=== PATIENT | female | born 1980 | race Two or more races ===

== ENCOUNTER 2016-11-02 14:30 | Inpatient (IN) | payer BC, OTHER ==
[~2016-11-02] VITALS: Ht 170.2 cm; Wt 109.3 kg
[2016-11-02 15:00] LABS: Basophils # (auto) 0 uL; Basophils % (auto) 0.3 % (0.0-2.0); CONDITION Y; Eosinophils # (auto) 0.2 uL; Eosinophils % (auto) 1.6 % (0.0-7.0); Hematocrit 40.8 % (36.0-46.0); Hemoglobin 14.2 g/dL (12.2-16.2); Lymphocytes # (auto) 2.8 uL; Lymphocytes % (auto) 26.1 % (10.0-50.0); Mean Corpuscular Hemoglobin 32.8 pg (28.0-32.0); Mean Corpuscular Hgb Conc. 34.8 g/dL (32.0-36.0); Mean Corpuscular Volume 94.2 fL (80.0-100.0); Mean Platelet Volume 9.2 fL (7.4-10.4); Monocytes # (auto) 0.7 uL; Monocytes % (auto) 6.3 % (0.0-12.0); Neutrophils # (auto) 7.1 uL; Neutrophils % (auto) 65.7 % (37.0-80.0); Platelet Count (auto) 347 10^3/uL (140-450); Red Cell Distribution Width 12.9 % (11.6-16.0); White Blood Cell 10.8 10^3/uL (4.4-10.8)
[2016-11-02 15:35] LABS: Albumin 3.5 g/dL (3.4-5.0); Bilirubin, Total 0.4 mg/dL (0.2-1.0); Calcium 9.3 mg/dL (8.5-10.1); Potassium 4.4 mmol/L (3.5-5.1); Total Protein 8.1 g/dL (6.4-8.2)
[2016-11-02] MEDS ORDERED: SODIUM CHLORIDE 0.9% 1,000 ML IV ONE (16:19)
[2016-11-02] MEDS ORDERED: InsuLIN REG 1unit/0.01ml Soln (100units/ml) IV ONE (16:30)
[2016-11-02 17:02] LABS: Urine Bilirubin Negative (Negative); Urine Color Yellow (Yellow); Urine Nitrite Negative (Negative); Urine RBC 4 /hpf (0 - 4); Urine Squamous Epithelial Cell FEW /hpf (<5); Urine Urobilinogen Normal (Negative); Urine pH 6.5 (5.0-8.0)
[2016-11-02 17:10] LABS: Urine Blood 2+ /uL (Negative); Urine Glucose 4+ mg/dL (Normal); Urine Ketone 1+ (Negative)
[2016-11-02] MEDS ORDERED: MORPHINE SULF INJ 2 MG/ML SYRINGE 1ML IV PRN (17:30)
[2016-11-02] MEDS ORDERED: HYDROcodone-ACET 5/325MG TAB PO PRN (17:30)
[2016-11-02] MEDS ORDERED: TEMAZEPAM 15 MG CAP PO PRN (17:30)
[2016-11-02] MEDS ORDERED: ONDANSETRON HCL 4 MG/2 ML VIAL IV PRN (17:30)
[2016-11-02] MEDS ORDERED: ACETAMINOPHEN 500 MG TAB PO PRN (17:30)
[2016-11-02] MEDS ORDERED: LORazepam 0.5 MG TAB PO PRN (17:30)
[2016-11-02] MEDS ORDERED: DEXTROSE (50%) 50ML SYRG IV PRN (17:30)
[2016-11-02] MEDS ORDERED: cefTRIAXone 1GM/50ML D5W 50 ML IV ONE ×2 (17:30)
[2016-11-02] MEDS: GENTAMICIN OPTH sol 0.3% 5ml EACHEYE SCH ×2 (18:13→21:52)
[2016-11-02] MEDS: SODIUM CHLORIDE 0.9% 1,000 ML IV SCH (18:21)
[2016-11-02] MEDS: ACCU-CHEK COMFORT CURVE STRIP VI SCH ×2 (20:28→23:58)
[2016-11-02] MEDS: InsuLIN REG 1unit/0.01ml Soln (100units/ml) SC SCH ×2 (20:28→23:58)
[2016-11-02 20:34] VITALS: BP 131/86
[2016-11-02 20:40] VITALS: BP 131/86
[2016-11-03] MEDS: SODIUM CHLORIDE 0.9% 1,000 ML IV SCH ×2 (01:20→09:47)
[2016-11-03] MEDS: GENTAMICIN OPTH sol 0.3% 5ml EACHEYE SCH ×4 (01:49→14:33)
[2016-11-03] MEDS ORDERED: METH750T3 PO (03:04)
[2016-11-03] MEDS ORDERED: GABA-339 PO (03:04)
[2016-11-03] MEDS ORDERED: HYDR-3995 PO (03:04)
[2016-11-03] MEDS ORDERED: DICL-176 PO (03:04)
[2016-11-03] MEDS: ACCU-CHEK COMFORT CURVE STRIP VI SCH ×3 (04:26→11:54)
[2016-11-03] MEDS: InsuLIN REG 1unit/0.01ml Soln (100units/ml) SC SCH ×3 (04:26→12:03)
[2016-11-03 05:00] VITALS: BP 124/89
[2016-11-03 09:00] VITALS: BP 104/50
[2016-11-03] MEDS ORDERED: cefTRIAXone 1GM/50ML D5W 50 ML IV SCH (09:00)
[2016-11-03] MEDS ORDERED: metFORMIN HYDROCHLORIDE 500 MG TAB PO SCH (10:00)
[2016-11-03 13:00] VITALS: BP 110/63
== END 2016-11-03 16:30 | disposition home or self-care (01) | DRG 638 ==
LOC: ER 14:39 → OVERFLOW 14:40 → EAST 20:36
PROVIDERS: ADMIT Internal Medicine; ATTEND Internal Medicine
DX: E11.65 Type 2 diabetes mellitus with hyperglycemia (principal); N39.0 Urinary tract infection, site not specified; H66.90 Otitis media, unspecified, unspecified ear; E66.9 Obesity, unspecified; M54.5 Low back pain; G89.29 Other chronic pain; H10.9 Unspecified conjunctivitis; I10 Essential (primary) hypertension; Z68.37 Body mass index [BMI] 37.0-37.9, adult
CPT/HCPCS: 36415; 80053; 81001; 81025; 82962; 83036; 85025; 87086; 94761; 96361; 96365; J0696; J1815

== ENCOUNTER 2019-10-20 18:25 | Emergency (ER) | payer BC, OTHER ==
[~2019-10-20] VITALS: Ht 170.2 cm; Wt 104.3 kg
[~2019-10-20 18:25] MED LIST: DICL-176 PO; GABA-339 PO; HYDR-3995 PO; METH750T3 PO
[2019-10-20 18:35] VITALS: BP 175/90
[2019-10-20] MEDS ORDERED: ACETAMINOPHEN 500 MG TAB PO ONE (20:00)
[2019-10-20 20:32] LABS: Basophils # (auto) 0 10 ^3/uL (0-0.2); Basophils % (auto) 0.4 % (0.0-2.0); Eosinophils # (auto) 0 10 ^3/uL (0-0.8); Eosinophils % (auto) 0.7 % (0.0-7.0); Hematocrit 42.8 % (36.0-46.0); Hemoglobin 14.8 g/dL (12.2-16.2); Lymphocytes # (auto) 1.2 10 ^3/uL (0.4-5.4); Lymphocytes % (auto) 18.5 % (10.0-50.0); Mean Corpuscular Hemoglobin 32.8 pg (28.0-32.0); Mean Corpuscular Hgb Conc. 34.6 g/dL (32.0-36.0); Mean Corpuscular Volume 94.6 fL (80.0-100.0); Monocytes # (auto) 0.3 10 ^3/uL (0-1.3); Monocytes % (auto) 5.2 % (0.0-12.0); Neutrophils # (auto) 4.9 10 ^3/uL (1.6-8.6); Neutrophils % (auto) 75.2 % (37.0-80.0); Nucleated Red Blood Cells % 0.1 %; Platelet Count (auto) 194 10^3/uL (140-450); Red Blood Cells 4.52 10^6/uL (4.0-5.20); White Blood Cell 6.5 10^3/uL (4.4-10.8)
[2019-10-20 20:49] LABS: Albumin 3.5 g/dL (3.4-5.0); Potassium 3.4 mmol/L (3.5-5.1)
[2019-10-20 20:53] LABS: BUN/Creatinine Ratio 16.5; Bilirubin, Total 0.4 mg/dL (0.2-1.0); Total Protein 8.3 g/dL (6.4-8.2)
== END 2019-10-21 00:11 | disposition home or self-care (01) ==
LOC: ER 18:25
DX: R50.9 Fever, unspecified (principal); R05 Cough; R51 Headache; R06.02 Shortness of breath; Z20.828 Contact with and (suspected) exposure to other viral communicable diseases; E11.9 Type 2 diabetes mellitus without complications; I10 Essential (primary) hypertension
CPT/HCPCS: 36415; 71045; 80053; 82728; 85025; 87070; 87635; 87804; 87880

== ENCOUNTER 2019-10-26 10:09 | Inpatient (IN) | payer BC ==
[~2019-10-26] VITALS: Ht 170.2 cm; Wt 100.0 kg
[2019-10-26] MEDS ORDERED: ASCORBIC ACID 500 MG TAB PO ONE (10:15)
[2019-10-26] MEDS ORDERED: DOXYCYCLINE 100 MG TAB/CAP PO ONE (10:15)
[2019-10-26] MEDS ORDERED: CHOLECALCIFEROL (VITD3) 1,000UNIT=25mCg TAB PO ONE (10:15)
[2019-10-26] MEDS ORDERED: cefTRIAXone 1GM/50ML D5W 50 ML IV ONE (10:15)
[2019-10-26] MEDS ORDERED: ACETAMINOPHEN 500 MG TAB PO ONE (10:15)
[2019-10-26] MEDS ORDERED: HYDROcodone-ACET 10/325MG TAB PO ONE (10:45)
[2019-10-26] MEDS ORDERED: DexAMETHasone SOD PHOS 10MG/1ML VIAL INJ IV ONE (10:45)
[2019-10-26 10:49] LABS: Basophils # (auto) 0 10 ^3/uL (0-0.2); Basophils % (auto) 0.3 % (0.0-2.0); Eosinophils # (auto) 0.1 10 ^3/uL (0-0.8); Hematocrit 43.9 % (36.0-46.0); Hemoglobin 15.2 g/dL (12.2-16.2); Lymphocytes # (auto) 1.6 10 ^3/uL (0.4-5.4); Lymphocytes % (auto) 18.1 % (10.0-50.0); Mean Corpuscular Hgb Conc. 34.6 g/dL (32.0-36.0); Mean Corpuscular Volume 92.5 fL (80.0-100.0); Monocytes # (auto) 0.5 10 ^3/uL (0-1.3); Monocytes % (auto) 5.6 % (0.0-12.0); Neutrophils # (auto) 6.6 10 ^3/uL (1.6-8.6); Nucleated Red Blood Cells % 0.1 %; Platelet Count (auto) 446 10^3/uL (140-450); Red Blood Cells 4.75 10^6/uL (4.0-5.20); Red Cell Distribution Width 12.1 % (11.8-14.3); White Blood Cell 8.8 10^3/uL (4.4-10.8)
[2019-10-26 11:08] LABS: Anion Gap 10 (5-15); Blood Urea Nitrogen 14 mg/dL (7-18); Calcium 9.2 mg/dL (8.5-10.1); Carbon Dioxide 22 mmol/L (21-32); Chloride 104 mmol/L (98-107); Glucose 282 mg/dL (74-106); Magnesium 2.1 mg/dL (1.6-2.6); Potassium 3.6 mmol/L (3.5-5.1); Sodium 136 mmol/L (136-145)
[2019-10-26 11:11] LABS: Lactic Acid w/Reflex 2.3 mmol/L (0.4-2.0)
[2019-10-26 11:16] LABS: Alanine Aminotransferase 32 U/L (13-56); Alkaline Phosphatase 157 U/L (45-117); Aspartate Aminotransferase 50 U/L (15-37); Bilirubin, Total 0.6 mg/dL (0.2-1.0); GFR African American 120 mL/min; GFR Non-African American 99 mL/min; Lactate Dehydrogenase 443 U/L (84-246); Total Protein 8.9 g/dL (6.4-8.2)
[2019-10-26 11:48] LABS: Albumin 2.9 g/dL (3.4-5.0)
[2019-10-26] MEDS ORDERED: SODIUM CHLORIDE 0.9% 1,000 ML IV SCH (12:37)
[2019-10-26] MEDS ORDERED: MORPHINE SULF INJ 2 MG/ML SYRINGE 1ML IV PRN (12:45)
[2019-10-26] MEDS ORDERED: ACETAMINOPHEN 500 MG TAB PO PRN (12:45)
[2019-10-26] MEDS ORDERED: ALUM & MAG HYDROX-SIMETH LIQ(MAALOX) 30 ML PO PRN (12:45)
[2019-10-26] MEDS ORDERED: NITROGLYCERIN 0.4 MG SL TAB SL PRN (12:45)
[2019-10-26] MEDS ORDERED: DOCUSATE SOD 100 MG CAP PO PRN (12:45)
[2019-10-26] MEDS ORDERED: FUROSEMIDE 20 MG/2 ML VIAL IV ONE (13:00)
[2019-10-26] MEDS ORDERED: DexAMETHasone 4 MG TAB PO ONE (13:00)
[2019-10-26 13:29] LABS: Cholesterol 133 mg/dL (< 200)
[2019-10-26 13:31] LABS: HDL Cholesterol 29 mg/dL (40-59); Triglycerides 448 mg/dL (< 150)
[2019-10-26] MEDS ORDERED: hydrALAZINE HCL 20 MG/ML VL IV PRN (13:45)
[2019-10-26] MEDS ORDERED: DEXTROSE (50%) 50ML SYRG IV PRN ×2 (13:45→18:30)
[2019-10-26] MEDS: ALBUTEROL SULF HFA 90MCG INH 200DOSE IN SCH ×2 (14:00→22:50)
[2019-10-26] MEDS ORDERED: PROP20TA73 PO (16:45)
[2019-10-26] MEDS ORDERED: METF-370 PO (16:45)
[2019-10-26] MEDS ORDERED: TIZA4CAP PO (16:46)
[2019-10-26] MEDS ORDERED: GLIP5TAB12 PO (16:47)
[2019-10-26] MEDS ORDERED: NORGTAB59 PO (16:49)
[2019-10-26] MEDS ORDERED: ACCU-CHEK COMFORT CURVE STRIP VI SCH (17:00)
[2019-10-26] MEDS ORDERED: InsuLIN REG 1unit/0.01ml Soln (100units/ml) SC SCH (17:00)
--- NOTE | 2019-10-26 17:00 | NUR ---
Telemetry admit from ER SARAY BOYLE admitted to Telemetry unit after SBAR received. Patient oriented to AMY COWART RN primary RN, unit, room, bed, and unit policies regarding patient care and visiting hours. Patient now on continuous telemetry monitoring, tele box # 11 and telemetry reading on arrival to unit is SR 76. Patient placed on bedside oxygen, weighed by bedscale and encouraged to call if they need something. All questions and concerns addressed, patient verbalized understanding. Note:
[2019-10-26 17:35] VITALS: BP 119/72
[2019-10-26] MEDS: FUROSEMIDE 20 MG/2 ML VIAL IV SCH (18:18)
[2019-10-26] MEDS ORDERED: INSULIN LANTUS (GLARGINE) 1 /0.01ml (100units/ml) SC ONE (18:30)
--- NOTE | 2019-10-26 18:30 | NUR ---
RECEIVED CALL BACK FROM DOCTOR FLOR INFORMED MD PATIENTS BLOOD SUGAR WAS [phone] AND [phone]. ALSO INFORMED MD THAT PATIENT STATED SHE HAS A YEAST INFECTION. NEW ORDERS RECEIVED SEE EMR FOR ORDERS.
[2019-10-26] MEDS ORDERED: FLUCONAZOLE 100 MG TAB PO ONE (20:00)
[2019-10-26] MEDS: DexAMETHasone 4 MG TAB PO SCH (20:48)
[2019-10-26] MEDS: ONDANSETRON HCL 4 MG/2 ML VIAL IV PRN (20:49)
[2019-10-26] MEDS: ACCU-CHEK COMFORT CURVE STRIP VI SCH (20:49)
[2019-10-26] MEDS: DOXYCYCLINE 100 MG TAB/CAP PO SCH (20:49)
[2019-10-26 22:00] VITALS: BP 151/95
[2019-10-27] MEDS ORDERED: DOXE6TAB4 PO (00:28)
[2019-10-27] MEDS: LORazepam 0.5 MG TAB PO PRN ×2 (00:48→23:44)
[2019-10-27] MEDS: InsuLIN REG 1unit/0.01ml Soln (100units/ml) SC SCH ×5 (00:50→23:52)
[2019-10-27 03:55] VITALS: BP 151/95
[2019-10-27] MEDS: MORPHINE SULF INJ 2 MG/ML SYRINGE 1ML IV PRN ×4 (04:58→21:22)
[2019-10-27 05:00] VITALS: BP 120/75
[2019-10-27] MEDS: ACCU-CHEK COMFORT CURVE STRIP VI SCH ×4 (05:38→23:51)
[2019-10-27] MEDS: FUROSEMIDE 20 MG/2 ML VIAL IV SCH (06:00)
[2019-10-27] MEDS: ALBUTEROL SULF HFA 90MCG INH 200DOSE IN SCH ×3 (06:01→20:39)
[2019-10-27 06:34] LABS: Basophils # (auto) 0 10 ^3/uL (0-0.2); Eosinophils # (auto) 0 10 ^3/uL (0-0.8); White Blood Cell 6.6 10^3/uL (4.4-10.8)
[2019-10-27 06:37] LABS: Basophils % (auto) 0.2 % (0.0-2.0); Hemoglobin 13.9 g/dL (12.2-16.2); Lymphocytes # (auto) 1.2 10 ^3/uL (0.4-5.4); Lymphocytes % (auto) 17.4 % (10.0-50.0); Mean Corpuscular Hemoglobin 32.4 pg (28.0-32.0); Mean Corpuscular Hgb Conc. 34.7 g/dL (32.0-36.0); Mean Corpuscular Volume 93.4 fL (80.0-100.0); Monocytes # (auto) 0.4 10 ^3/uL (0-1.3); Monocytes % (auto) 6.3 % (0.0-12.0); Neutrophils % (auto) 76.1 % (37.0-80.0); Nucleated Red Blood Cells % 0.1 %; Platelet Count (auto) 450 10^3/uL (140-450); Red Blood Cells 4.28 10^6/uL (4.0-5.20); Red Cell Distribution Width 11.8 % (11.8-14.3)
[2019-10-27 06:58] LABS: Albumin 2.8 g/dL (3.4-5.0); Anion Gap 9 (5-15); Blood Urea Nitrogen 16 mg/dL (7-18); Calcium 9.2 mg/dL (8.5-10.1); Carbon Dioxide 21 mmol/L (21-32); Chloride 104 mmol/L (98-107); Glucose 305 mg/dL (74-106); INR 0.96 (0.9-1.15); Magnesium 1.9 mg/dL (1.6-2.6); Partial Thromboplastin Time 27.6 sec (23.64-32.05); Potassium 3.6 mmol/L (3.5-5.1); Sodium 134 mmol/L (136-145)
[2019-10-27 07:15] LABS: Alanine Aminotransferase 27 U/L (13-56); Alkaline Phosphatase 140 U/L (45-117); Aspartate Aminotransferase 30 U/L (15-37); BUN/Creatinine Ratio 28.6; Bilirubin, Total 0.4 mg/dL (0.2-1.0); GFR African American 155 mL/min; GFR Non-African American 128 mL/min; Lactate Dehydrogenase 333 U/L (84-246); Phosphorus 2.6 mg/dL (2.5-4.90); Total Protein 8.2 g/dL (6.4-8.2); Uric Acid 3.8 mg/dL (2.6-6.0)
--- NOTE | 2019-10-27 08:00 | NUR ---
OPENING NOTE ASSUMED CARE OF PT. NO S/S OF DISTRESS NOTED AT THIS TIME. PT COMPLAINS OF LOWER BACK, NECK AND HEAD PAIN. PT RECEIVING OXYGEN VIA OXYMIZER @9L. POC DISCUSSED WITH PT. RHONCHI AND WHEEZING HEARD BILATERALLY IN THE POSTERIOR BASES. PT ADVISED TO USE THE IS TO PROMOTE LUNG EXPANSION. SAFETY MEASURES IN PLACE, CALL LIGHT WITHIN REACH, PATIENT ADVISED TO CALL FOR ASSISTANCE. ALL NEEDS MET AT THIS TIME, WILL CONTINUE TO MONITOR.
[2019-10-27] MEDS: DOXYCYCLINE 100 MG TAB/CAP PO SCH ×2 (08:59→20:39)
[2019-10-27] MEDS: ASCORBIC ACID 1,000 MG TAB PO SCH (08:59)
[2019-10-27] MEDS: ZINC SULFATE 220mg CAP or TAB PO SCH (08:59)
[2019-10-27] MEDS: CHOLECALCIFEROL (VITD3) 1,000UNIT=25mCg TAB PO SCH (08:59)
[2019-10-27 09:00] VITALS: BP 142/92
[2019-10-27] MEDS ORDERED: ENOXAPARIN SOD 40 MG/0.4 ML SYRINGE SC SCH (10:00)
[2019-10-27] MEDS ORDERED: ENOXAPARIN SOD 60 MG/0.6 ML SYRINGE SC ONE (10:30)
[2019-10-27] MEDS: DexAMETHasone 4 MG TAB PO SCH ×2 (10:34→20:39)
[2019-10-27] MEDS: HYDROcodone-ACET 5/325MG TAB PO PRN (11:07)
[2019-10-27 13:00] VITALS: BP 109/70
[2019-10-27] MEDS ORDERED: DEXTROSE (50%) 50ML SYRG IV PRN (13:30)
[2019-10-27] MEDS ORDERED: POTASSIUM EFFERVESENT TAB 25 MEQ PO ONE (13:45)
[2019-10-27 17:00] VITALS: BP 146/90
--- NOTE | 2019-10-27 19:30 | NUR ---
Opening Shift Note Assumed care of patient, awake and alert. No S/S of distress/SOB or pain. Insructed on POC and to callfor assist PRN, will continue to monitor for changes Q1hr and PRN. Fall and safety precautions in place. Call light within reach.
[2019-10-27] MEDS: cefTRIAXone 1GM/50ML D5W 50 ML IV SCH (20:38)
[2019-10-27] MEDS: ENOXAPARIN SOD 100 MG/1 ML SYRINGE SC SCH (20:39)
[2019-10-27] MEDS: INSULIN LANTUS (GLARGINE) 1 /0.01ml (100units/ml) SC SCH (20:58)
[2019-10-27] MEDS: ONDANSETRON HCL 4 MG/2 ML VIAL IV PRN (21:22)
--- NOTE | 2019-10-27 21:56 | NUR ---
MDI ADMINISTERED BY JUVE TREVINO.
[2019-10-27 22:45] VITALS: BP 131/89
[2019-10-28] MEDS: ONDANSETRON HCL 4 MG/2 ML VIAL IV PRN (04:08)
[2019-10-28] MEDS: MORPHINE SULF INJ 2 MG/ML SYRINGE 1ML IV PRN ×3 (04:09→16:08)
[2019-10-28 04:15] LABS: Urine Bacteria FEW /hpf (None Seen); Urine Blood Negative /uL (Negative); Urine Specific Gravity 1.037 (1.001-1.035); Urine WBC 1 /hpf (0 - 5)
[2019-10-28 04:31] LABS: Alcohol, Urine < 3.0 mg/dL (0-10); Amphetamine Screen, Urine NEGATIVE (NEGATIVE); Barbiturate Scree,Urine NEGATIVE (NEGATIVE); Benzodiazephine Screen, Urine NEGATIVE (NEGATIVE); Cannabinoid Screen, Urine NEGATIVE (NEGATIVE); Cocaine Screen, Urine NEGATIVE (NEGATIVE); Opiate Scree,Urine POSITIVE (NEGATIVE); Phencyclidine Screen, Urine NEGATIVE (NEGATIVE)
[2019-10-28 05:27] VITALS: BP 125/75
[2019-10-28] MEDS: ALBUTEROL SULF HFA 90MCG INH 200DOSE IN SCH ×3 (05:37→22:17)
--- NOTE | 2019-10-28 05:37 | NUR ---
Respiratory note: PT IS RESTING COMFORTABLY. NO RESPIRATORY DISTRESS NOTED. SPO2 92% ON 8L OXYMIZER 64% FIO2, HR 91, RR 18, BS DIMINISHED BILATERALLY. 1 PUFF ALBUTEROL (90MCG) GIVEN VIA MDI WITH CHAMBER BY RN. NO ADVERSE EFFECTS NOTED. NO FURTHER RESPIRATORY INTERVENTIONS INDICATED. CHARTING COMPLETE FROM OUTSIDE OF PT ROOM DUE TO COVID-19 PRECAUTIONS/PROTOCOL.
[2019-10-28] MEDS: ACCU-CHEK COMFORT CURVE STRIP VI SCH ×3 (05:38→18:10)
[2019-10-28] MEDS: InsuLIN REG 1unit/0.01ml Soln (100units/ml) SC SCH ×3 (05:38→18:11)
[2019-10-28] MEDS: LORazepam 0.5 MG TAB PO PRN ×3 (06:06→18:14)
[2019-10-28] MEDS ORDERED: INSULIN LANTUS (GLARGINE) 1 /0.01ml (100units/ml) SC SCH (07:00)
--- NOTE | 2019-10-28 07:45 | NUR ---
OPENING SHIFT NOTE Assumed care of patient. PT is awake and alert. No S/S of distress/SOB. PT on 8L O2 via Oxymizer. Reviewed POC and instructed to call for assist PRN. Fall and safety precautions in place. Call light within reach. Will continue to monitor for changes Q1hr and PRN.
[2019-10-28] MEDS: cefTRIAXone 1GM/50ML D5W 50 ML IV SCH ×2 (09:20→20:31)
[2019-10-28] MEDS: POTASSIUM EFFERVESENT TAB 25 MEQ PO SCH (09:20)
[2019-10-28] MEDS: FUROSEMIDE 20 MG/2 ML VIAL IV SCH (09:21)
[2019-10-28] MEDS: ENOXAPARIN SOD 100 MG/1 ML SYRINGE SC SCH ×2 (09:21→21:44)
[2019-10-28] MEDS: ZINC SULFATE 220mg CAP or TAB PO SCH (09:23)
[2019-10-28] MEDS: DexAMETHasone 4 MG TAB PO SCH ×2 (09:23→21:44)
[2019-10-28] MEDS: CHOLECALCIFEROL (VITD3) 1,000UNIT=25mCg TAB PO SCH (09:23)
[2019-10-28] MEDS: DOXYCYCLINE 100 MG TAB/CAP PO SCH ×2 (09:24→21:45)
[2019-10-28] MEDS: HYDROcodone-ACET 5/325MG TAB PO PRN ×2 (09:24→21:44)
[2019-10-28] MEDS: ASCORBIC ACID 1,000 MG TAB PO SCH (09:31)
[2019-10-28] MEDS ORDERED: SALINE 0.65 % NASAL SPRAY 45ML BOTTLE EACHNOSTRI PRN (11:15)
[2019-10-28 11:34] VITALS: BP 136/93
[2019-10-28] MEDS ORDERED: InsuLIN REG 1unit/0.01ml Soln (100units/ml) IV ONE (12:15)
[2019-10-28 13:00] VITALS: BP 129/86
--- NOTE | 2019-10-28 14:02 | NUR ---
Respiratory note: PT AWAKE, AND ALERT. NO RESPIRATORY DISTRESS NOTED. SPO2 98% ON 8L OXYMIZER 64% FIO2, HR 86, RR 18, BS DIMINISHED BILATERALLY. 1 PUFF ALBUTEROL (90MCG) GIVEN VIA MDI WITH CHAMBER. NO ADVERSE EFFECTS NOTED. NO FURTHER RESPIRATORY INTERVENTIONS INDICATED. CHARTING COMPLETE FROM OUTSIDE OF PT ROOM DUE TO COVID-19 PRECAUTIONS/PROTOCOL.
[2019-10-28 17:00] VITALS: BP 139/90
--- NOTE | 2019-10-28 17:16 | NUR ---
PT WILLING TO TRY "NEW TREATMENT". NOT PAGEABLE. WILL ENDORSE TO NIGHT NURSE.
--- NOTE | 2019-10-28 19:30 | NUR ---
OPENING SHIFT NOTE Assumed care of patient. PT is awake and alert. No S/S of distress/SOB noted. Patient on 8L O2 via Oxymizer. Reviewed POC and instructed to call for assist PRN. Fall and safety precautions in place. Call light within reach. Bed is in lowest locked position with bed rails up x2.
[2019-10-28 22:00] VITALS: BP 129/93
[2019-10-28] MEDS: INSULIN LANTUS (GLARGINE) 1 /0.01ml (100units/ml) SC SCH (22:00)
--- NOTE | 2019-10-28 22:00 | NUR ---
CRITICAL BLOOD SUGARS: Patient had critical blood sugars of 437 first check, second check 425. Administered Lantus as scheduled in order. To notify hospitalist of critical blood sugar.
--- NOTE | 2019-10-28 22:01 | NUR ---
Hospitalist paged: Paged hospitalist at this time regarding critical blood sugar, waiting for call back.
--- NOTE | 2019-10-28 22:53 | NUR ---
Hospitalist called back: Hospitalist Freddy called back, new orders received. To place and carry out orders.
[2019-10-28] MEDS ORDERED: DEXTROSE (50%) 50ML SYRG IV PRN (23:00)
[2019-10-29] MEDS: LORazepam 0.5 MG TAB PO PRN ×3 (00:37→20:48)
[2019-10-29] MEDS: ACCU-CHEK COMFORT CURVE STRIP VI SCH ×6 (04:22→20:17)
[2019-10-29] MEDS: InsuLIN REG 1unit/0.01ml Soln (100units/ml) SC SCH ×6 (04:25→20:00)
[2019-10-29 05:00] VITALS: BP 136/91
[2019-10-29] MEDS: HYDROcodone-ACET 5/325MG TAB PO PRN (06:21)
[2019-10-29] MEDS: INSULIN LANTUS (GLARGINE) 1 /0.01ml (100units/ml) SC SCH ×2 (06:26→22:11)
--- NOTE | 2019-10-29 07:20 | NUR ---
Opening Shift Note Assumed care of patient, awake and alert. A&Ox4. No S/S of distress or pain. Safety measures maintained by keeping the bed locked in lowest position, personal items and call light within reach. Instructed on POC and to call for assist PRN, will continue to monitor for changes Q1hr and PRN.
[2019-10-29 07:26] LABS: Basophils # (auto) 0.1 10 ^3/uL (0-0.2); Eosinophils # (auto) 0 10 ^3/uL (0-0.8); Hemoglobin 14.2 g/dL (12.2-16.2); Monocytes # (auto) 0.8 10 ^3/uL (0-1.3); Nucleated Red Blood Cells % 0.1 %; White Blood Cell 12.5 10^3/uL (4.4-10.8)
[2019-10-29 07:30] LABS: Basophils % (auto) 0.8 % (0.0-2.0); Hematocrit 41.2 % (36.0-46.0); Lymphocytes # (auto) 1.9 10 ^3/uL (0.4-5.4); Lymphocytes % (auto) 15.6 % (10.0-50.0); Mean Corpuscular Hgb Conc. 34.4 g/dL (32.0-36.0); Monocytes % (auto) 6.3 % (0.0-12.0); Neutrophils # (auto) 9.7 10 ^3/uL (1.6-8.6); Neutrophils % (auto) 77.3 % (37.0-80.0); Platelet Count (auto) 614 10^3/uL (140-450); Red Blood Cells 4.44 10^6/uL (4.0-5.20); Red Cell Distribution Width 12.2 % (11.8-14.3)
[2019-10-29] MEDS: ALBUTEROL SULF HFA 90MCG INH 200DOSE IN SCH ×3 (07:30→21:47)
[2019-10-29 07:35] LABS: Potassium 3.5 mmol/L (3.5-5.1)
--- NOTE | 2019-10-29 07:35 | NUR ---
charting error at 0730, disregard o2 charting. Decreased to 6lpm oxymizer, sp02 93%. Continue to monitor 02 saturation. Addendum: 10/29/19 at 0944 by Qing Glynn RT Amended: Links added.
[2019-10-29 07:50] LABS: Albumin 2.9 g/dL (3.4-5.0); BUN/Creatinine Ratio 27.6; Bilirubin, Total 0.4 mg/dL (0.2-1.0); Calcium 8.7 mg/dL (8.5-10.1); Total Protein 8.2 g/dL (6.4-8.2)
[2019-10-29] MEDS: cefTRIAXone 1GM/50ML D5W 50 ML IV SCH ×2 (08:16→21:29)
[2019-10-29] MEDS: MORPHINE SULF INJ 2 MG/ML SYRINGE 1ML IV PRN ×4 (08:17→21:31)
--- NOTE | 2019-10-29 08:17 | NUR ---
Pain Pt reported pain all over her body, 11/29, pt requested pain medication, will medicate pt as order.
[2019-10-29 09:00] VITALS: BP 136/70
[2019-10-29] MEDS: FUROSEMIDE 20 MG/2 ML VIAL IV SCH (10:43)
[2019-10-29] MEDS: ZINC SULFATE 220mg CAP or TAB PO SCH (10:44)
[2019-10-29] MEDS: CHOLECALCIFEROL (VITD3) 1,000UNIT=25mCg TAB PO SCH (10:44)
[2019-10-29] MEDS: ASCORBIC ACID 1,000 MG TAB PO SCH (10:44)
[2019-10-29] MEDS: DOXYCYCLINE 100 MG TAB/CAP PO SCH ×2 (10:45→21:48)
[2019-10-29] MEDS: DexAMETHasone 4 MG TAB PO SCH ×2 (10:47→21:48)
[2019-10-29] MEDS: POTASSIUM EFFERVESENT TAB 25 MEQ PO SCH (10:47)
[2019-10-29] MEDS: ENOXAPARIN SOD 100 MG/1 ML SYRINGE SC SCH ×2 (10:47→21:48)
--- NOTE | 2019-10-29 12:22 | NUR ---
Nutrition Assessment Notes Please refer to link for full assessment notes. Est Energy needs: 6518-1894 kcals (11-14 kcal/kgBW) Est Protein needs: 119-159 gms/day (1.2-1.6 gm/kgBW) d/t pt respiratory distress Will continue to monitor and reassess prn. Addendum: 10/29/19 at [address] Amended: Links added.
[2019-10-29] MEDS: ONDANSETRON HCL 4 MG/2 ML VIAL IV PRN (12:48)
--- NOTE | 2019-10-29 12:48 | NUR ---
Pain Pt reported pain all over her body, 11/29, pt requested pain medication, will medicate pt as order.
[2019-10-29 13:00] VITALS: BP 134/82
--- NOTE | 2019-10-29 14:35 | NUR ---
DECREASED 02 TO 5LPM OXYMIZER AT THIS TIME. Addendum: 10/29/19 at 1549 by Qing Glynn RT Amended: Links added.
--- NOTE | 2019-10-29 16:30 | NUR ---
Called Dr. Wiggins and Dr. Funez to ask for the approval for the convalescent plasma, as per Dr. Wiggins and Dr. Funez the convalescent plasma for this pt has been ok to be given.
--- NOTE | 2019-10-29 16:58 | NUR ---
Pain Pt reported pain to generalized body /, pt requested Morphine pain medication, will medicate pt as order.
[2019-10-29 17:00] VITALS: BP 118/84
--- NOTE | 2019-10-29 19:25 | NUR ---
Opening Shift Note Received report from Justina AN. Assumed care of patient, awake and alert. No S/S of distress/SOB or pain. Instructed on POC and to call for assist PRN, will continue to monitor for changes Q1hr and PRN.
[2019-10-29] MEDS ORDERED: diphenhdrAMINE HCL 50 MG/1 ML VL IV ONE (19:45)
[2019-10-29] MEDS ORDERED: methylPREDNISolone SOD SUCC 40 MG/ML VL IV ONE (19:45)
[2019-10-29] MEDS ORDERED: ACETAMINOPHEN 650 mg PER 20 mL UD PO ONE (19:45)
[2019-10-29] MEDS: TOCILIZUMAB 400 MG in SODIUM CHL 0.9% 80 ML IV SCH (20:33)
--- NOTE | 2019-10-29 21:31 | NUR ---
Pain Complains of 10/10 pain at the back, Morphine IV given, will continue to monitor.
[2019-10-29 22:00] VITALS: BP 118/72
--- NOTE | 2019-10-29 22:12 | NUR ---
Pain level now is 6/10, continue care.
[2019-10-30] MEDS: ACCU-CHEK COMFORT CURVE STRIP VI SCH ×6 (00:17→20:27)
[2019-10-30] MEDS: InsuLIN REG 1unit/0.01ml Soln (100units/ml) SC SCH ×6 (00:18→20:46)
[2019-10-30] MEDS: MORPHINE SULF INJ 2 MG/ML SYRINGE 1ML IV PRN ×5 (01:31→20:28)
[2019-10-30] MEDS: LORazepam 0.5 MG TAB PO PRN ×2 (03:04→09:15)
[2019-10-30 05:00] VITALS: BP 132/72
[2019-10-30] MEDS: ALBUTEROL SULF HFA 90MCG INH 200DOSE IN SCH ×3 (05:53→20:48)
--- NOTE | 2019-10-30 05:54 | NUR ---
Patient back pain at 12/30, Morphine IV given.
[2019-10-30 06:02] LABS: Basophils # (auto) 0 10 ^3/uL (0-0.2); Basophils % (auto) 0.2 % (0.0-2.0); Eosinophils # (auto) 0 10 ^3/uL (0-0.8); Lymphocytes # (auto) 1.6 10 ^3/uL (0.4-5.4); Monocytes # (auto) 0.6 10 ^3/uL (0-1.3)
[2019-10-30 06:05] LABS: Hematocrit 40.9 % (36.0-46.0); Hemoglobin 14.1 g/dL (12.2-16.2); Lymphocytes % (auto) 15.1 % (10.0-50.0); Mean Corpuscular Hgb Conc. 34.4 g/dL (32.0-36.0); Monocytes % (auto) 5.4 % (0.0-12.0); Neutrophils # (auto) 8.7 10 ^3/uL (1.6-8.6); Neutrophils % (auto) 79.3 % (37.0-80.0); Nucleated Red Blood Cells % 0.2 %; Platelet Count (auto) 605 10^3/uL (140-450); White Blood Cell 10.9 10^3/uL (4.4-10.8)
[2019-10-30 06:37] LABS: Albumin 2.9 g/dL (3.4-5.0); Calcium 8.6 mg/dL (8.5-10.1)
[2019-10-30 06:41] LABS: BUN/Creatinine Ratio 25.4; Bilirubin, Total 0.4 mg/dL (0.2-1.0); Total Protein 7.5 g/dL (6.4-8.2)
--- NOTE | 2019-10-30 06:51 | NUR ---
Latest pain level is 5/10, continue care.
[2019-10-30] MEDS: INSULIN LANTUS (GLARGINE) 1 /0.01ml (100units/ml) SC SCH ×2 (06:52→20:47)
--- NOTE | 2019-10-30 07:30 | NUR ---
Opening Shift Note RECEIVED REPORT FROM NOC RN. Assumed care of patient, awake and alert. PATIENT ON OXYGEN AT 5 LPM VIA OXYMIZER WITH no S/S of distress/SOB or pain. BED IN LOWEST, LOCKED POSITION WITH SIDERAILS UP x2 AND CALL LIGHT WITHIN REACH. Instructed on POC and to call for assist PRN, will continue to monitor for changes Q1hr and PRN.
[2019-10-30] MEDS ORDERED: methylPREDNISolone SOD SUCC 40 MG/ML VL IV ONE (07:45)
[2019-10-30] MEDS ORDERED: diphenhdrAMINE HCL 50 MG/1 ML VL IV ONE (07:45)
[2019-10-30] MEDS ORDERED: ACETAMINOPHEN 650 mg PER 20 mL UD PO ONE (07:45)
[2019-10-30 08:30] VITALS: BP 126/76
[2019-10-30] MEDS: cefTRIAXone 1GM/50ML D5W 50 ML IV SCH ×2 (09:21→20:47)
[2019-10-30 10:51] VITALS: BP 126/76
[2019-10-30] MEDS: TOCILIZUMAB 400 MG in SODIUM CHL 0.9% 80 ML IV SCH (10:53)
[2019-10-30] MEDS: ZINC SULFATE 220mg CAP or TAB PO SCH (10:54)
[2019-10-30] MEDS: FUROSEMIDE 20 MG/2 ML VIAL IV SCH (10:54)
[2019-10-30] MEDS: DexAMETHasone 4 MG TAB PO SCH ×2 (10:55→20:48)
[2019-10-30] MEDS: DOXYCYCLINE 100 MG TAB/CAP PO SCH ×2 (10:55→20:48)
[2019-10-30] MEDS: ASCORBIC ACID 1,000 MG TAB PO SCH (10:55)
[2019-10-30] MEDS: ENOXAPARIN SOD 100 MG/1 ML SYRINGE SC SCH ×2 (10:55→20:48)
[2019-10-30] MEDS: CHOLECALCIFEROL (VITD3) 1,000UNIT=25mCg TAB PO SCH (10:55)
[2019-10-30] MEDS: POTASSIUM EFFERVESENT TAB 25 MEQ PO SCH (10:55)
[2019-10-30 12:33] VITALS: BP 142/98
--- NOTE | 2019-10-30 14:40 | NUR ---
DR. LOPEZ ON UNIT.
--- NOTE | 2019-10-30 14:53 | NUR ---
CALLED BLOOD BANK REGARDING CONVALES[facility]ENT PLASMA. ADVISED THEY'RE WORKING ON IT.
--- NOTE | 2019-10-30 16:22 | NUR ---
PAGED DR. LOPEZ FOR BLOOD GLUCOSE READING OF [phone].
--- NOTE | 2019-10-30 16:34 | NUR ---
DR. LOPEZ RETURNED PAGE. NEW ORDERS RECEIVED AND CARRIED OUT.
[2019-10-30] MEDS ORDERED: InsuLIN REG 1unit/0.01ml Soln (100units/ml) IV ONE (16:45)
[2019-10-30 17:27] VITALS: BP 128/84
--- NOTE | 2019-10-30 19:10 | NUR ---
Opening Shift Note Assumed care of patient, awake and alert. Patient on 5 liters oxygen via Oxymizer with pulse oxygenation at 99%. No S/S of distress/SOB or pain. Bed in lowest locked position, side rails up x2, call light within reach. Instructed on POC and to call for assist PRN, will continue to monitor for changes Q1hr and PRN. COVID [address], will continue to maintain throughout shift.
[2019-10-30 22:00] VITALS: BP 136/82
[2019-10-31] MEDS: ACCU-CHEK COMFORT CURVE STRIP VI SCH ×7 (00:12→22:15)
[2019-10-31] MEDS: InsuLIN REG 1unit/0.01ml Soln (100units/ml) SC SCH ×6 (00:37→22:13)
[2019-10-31] MEDS: MORPHINE SULF INJ 2 MG/ML SYRINGE 1ML IV PRN ×5 (00:38→22:51)
[2019-10-31] MEDS: LORazepam 0.5 MG TAB PO PRN ×3 (00:38→22:00)
[2019-10-31 05:00] VITALS: BP 118/67
[2019-10-31] MEDS: INSULIN LANTUS (GLARGINE) 1 /0.01ml (100units/ml) SC SCH ×2 (06:39→22:15)
--- NOTE | 2019-10-31 06:58 | NUR ---
Closing Note Patient lying in bed, awake and alert. No s/s of distress. Call light within reach. Care endorsed to dayshift RN.
[2019-10-31] MEDS: ALBUTEROL SULF HFA 90MCG INH 200DOSE IN SCH ×3 (07:00→22:14)
--- NOTE | 2019-10-31 07:00 | NUR ---
Respiratory note: PT SEEN , MDI GIVEN 90MCG . PT TOLERATED WELL, NO ADVERSE REACTION NOTED. HR 66, RR 18, SPO2 95% ON 5L OXYMIZER.BS ARE CLEAR AND DIMINISHED. WILL CONTINUE TO MONITOR.
--- NOTE | 2019-10-31 07:32 | NUR ---
Opening Shift Note Assumed care of patient, awake and alert. No S/S of distress/SOB or pain. Instructed on POC and to call for assist PRN, will continue to monitor for changes Q1hr and PRN
[2019-10-31] MEDS: POTASSIUM EFFERVESENT TAB 25 MEQ PO SCH (08:08)
[2019-10-31] MEDS: DexAMETHasone 4 MG TAB PO SCH (08:08)
[2019-10-31] MEDS: ZINC SULFATE 220mg CAP or TAB PO SCH (08:08)
[2019-10-31] MEDS: DOXYCYCLINE 100 MG TAB/CAP PO SCH ×2 (08:08→22:14)
[2019-10-31] MEDS: CHOLECALCIFEROL (VITD3) 1,000UNIT=25mCg TAB PO SCH (08:10)
[2019-10-31] MEDS: ASCORBIC ACID 1,000 MG TAB PO SCH (08:10)
[2019-10-31] MEDS: ENOXAPARIN SOD 100 MG/1 ML SYRINGE SC SCH ×2 (08:10→22:00)
[2019-10-31] MEDS: cefTRIAXone 1GM/50ML D5W 50 ML IV SCH ×2 (08:11→20:32)
[2019-10-31 09:00] VITALS: BP 125/79
[2019-10-31] MEDS: FUROSEMIDE 20 MG/2 ML VIAL IV SCH (10:00)
--- NOTE | 2019-10-31 10:35 | NUR ---
IV insertion IV access obtained, via clean sterile technique by inserting 20 gauge catheter at LEFT FOREARM after 4 attempt(s). IV secured properly. No trauma to site. Patient tolerated well. IV removal IV DC'd with clean sterile technique, catheter fully intact. Pressure dressing applied to site. Patient tolerated well.
[2019-10-31 12:37] VITALS: BP 126/86
[2019-10-31] MEDS: HYDROcodone-ACET 5/325MG TAB PO PRN ×2 (13:55→20:40)
--- NOTE | 2019-10-31 14:05 | NUR ---
Respiratory note: PT SEEN , MDI GIVEN 90MCG . PT TOLERATED WELL, NO ADVERSE REACTION NOTED. HR 81, RR 18, SPO2 95% ON 5L OXYMIZER.BS ARE CLEAR AND DIMINISHED. WILL CONTINUE TO MONITOR.
[2019-10-31] MEDS: ONDANSETRON HCL 4 MG/2 ML VIAL IV PRN (16:59)
[2019-10-31 17:00] VITALS: BP 134/79
--- NOTE | 2019-10-31 17:00 | NUR ---
PT CHANGED TO NASAL CANNULA AT 4L WITH SATURATION OF 96%
--- NOTE | 2019-10-31 19:30 | NUR ---
Opening Shift Note Assumed care of patient, awake and alert. No S/S of distress/SOB or pain. Instructed on POC and to call for assist PRN, will continue to monitor for changes Q1hr and PRN. bed in low position and call light within reach
[2019-10-31 22:00] VITALS: BP 133/63
[2019-11-01] VITALS (9 sets, daily range): BP systolic 102–137; BP diastolic 61–91
--- NOTE | 2019-11-01 01:04 | NUR ---
patient denies and shows no signs of allergic reaction. vs taken.
--- NOTE | 2019-11-01 01:23 | NUR ---
transfusion ended patient denies sob distress or pain. no allergic reaction noted. vs taken
[2019-11-01] MEDS: ACCU-CHEK COMFORT CURVE STRIP VI SCH ×5 (01:30→20:15)
[2019-11-01] MEDS: InsuLIN REG 1unit/0.01ml Soln (100units/ml) SC SCH ×7 (01:31→23:53)
[2019-11-01] MEDS: MORPHINE SULF INJ 2 MG/ML SYRINGE 1ML IV PRN ×3 (03:13→22:17)
[2019-11-01] MEDS: LORazepam 0.5 MG TAB PO PRN ×3 (04:10→23:37)
[2019-11-01] MEDS: ALBUTEROL SULF HFA 90MCG INH 200DOSE IN SCH ×3 (05:35→22:35)
[2019-11-01] MEDS: INSULIN LANTUS (GLARGINE) 1 /0.01ml (100units/ml) SC SCH ×2 (06:24→22:16)
--- NOTE | 2019-11-01 07:04 | NUR ---
report given to dayshift rn patient is alert and awake denies sob distress or pain.
--- NOTE | 2019-11-01 07:15 | NUR ---
RT NOTE: MDI GIVEN BY RN. NO SIGNS OF DISTRESS NOTED AT THIS TIME. ON RA SPO2 93 HR 100 RR 16. WILL CONTINUE TO MONITOR.
[2019-11-01] MEDS: POTASSIUM EFFERVESENT TAB 25 MEQ PO SCH (07:59)
[2019-11-01] MEDS: DOXYCYCLINE 100 MG TAB/CAP PO SCH ×2 (07:59→22:16)
[2019-11-01] MEDS: cefTRIAXone 1GM/50ML D5W 50 ML IV SCH ×2 (07:59→22:15)
[2019-11-01] MEDS: ASCORBIC ACID 1,000 MG TAB PO SCH (08:00)
[2019-11-01] MEDS: CHOLECALCIFEROL (VITD3) 1,000UNIT=25mCg TAB PO SCH (08:00)
[2019-11-01] MEDS: ENOXAPARIN SOD 100 MG/1 ML SYRINGE SC SCH ×2 (08:00→22:16)
[2019-11-01] MEDS: ZINC SULFATE 220mg CAP or TAB PO SCH (08:00)
[2019-11-01] MEDS: FUROSEMIDE 20 MG/2 ML VIAL IV SCH (08:01)
[2019-11-01] MEDS: HYDROcodone-ACET 5/325MG TAB PO PRN (08:32)
[2019-11-01] MEDS: ONDANSETRON HCL 4 MG/2 ML VIAL IV PRN (10:08)
--- NOTE | 2019-11-01 14:46 | NUR ---
Nutrition Followup Note Wt 100.7kg Pt is covid positive in the covid wing. Pt feeling better per MD note. Pt appetite is good aeb pt with adequate po intake aeb pt with 100% po intake x 2 10/29-10/30 per RN note. Est Energy needs: 2825-4520 kcals (11-14 kcal/kgBW) Est Protein needs: 119-159 gms/day (1.2-1.6 gm/kgBW) d/t pt respiratory distress Will continue to monitor and reassess prn. Labs: GLUC 208H, Alb 2.9L BM: 1 BM 10/25 per RN note Skin: BS 20 low risk, full details in care program director doc PES: 1) Food and nutrition related knowledge r/t pt dietary non-compliance deficit aeb hyperglycemia, elev A1c 2) Altered nutrition related lab values r/t current/chronic medical condition aeb hyperglycemia, elev A1c, mod hypoalbuminemia Comments: Will continue to monitor PO status, skin status, pertinent labs and weight trends. Will f/u in 2-3 days. 1) Continue to closely monitor pt PO intake to meet at least 75% of meals 2) Suggest a CCHO 45g diet 3) Refer pt to RD/CDE for nutrition education upon D/C 4) Continue current plan of care Expected Outcomes/Goals: Pt appetite to remain >75% PO intake Pt to see a RD/CDE for nutrition education after D/C Pt labs to improve
--- NOTE | 2019-11-01 18:28 | NUR ---
PT TITRATED TO 3LNC CURRENT SPO2 93% WILL CONTINUE TO MONITOR
--- NOTE | 2019-11-01 20:00 | NUR ---
Opening Shift Note Assumed care of patient, awake and alert. A&Ox4. Patient lying down in bed. No S/S of distress/SOB or pain. Safety measures maintained by keeping the bed locked in lowest position, 2 side rails up, personal items and call light within reach. Instructed on POC and to call for assist PRN, will continue to monitor for changes Q1hr and PRN.
--- NOTE | 2019-11-01 20:40 | NUR ---
SPOKE WITH HOSPITALIST reyes to shower.
[2019-11-02] MEDS: ACCU-CHEK COMFORT CURVE STRIP VI SCH ×5 (00:45→16:00)
[2019-11-02] MEDS: InsuLIN REG 1unit/0.01ml Soln (100units/ml) SC SCH ×4 (04:07→16:00)
[2019-11-02 05:00] VITALS: BP 101/50
[2019-11-02] MEDS: ALBUTEROL SULF HFA 90MCG INH 200DOSE IN SCH ×2 (06:00→14:10)
[2019-11-02] MEDS: INSULIN LANTUS (GLARGINE) 1 /0.01ml (100units/ml) SC SCH (06:32)
--- NOTE | 2019-11-02 07:20 | NUR ---
Opening Shift Note Assumed care of patient, awake and alert. A&Ox4. Patient lying down in bed. No S/S of distress/SOB or pain. Sbed locked in lowest position, 2 side rails up, personal items and call light within reach. Instructed on POC and to call for assist PRN, will continue to monitor for changes Q1hr and PRN.
[2019-11-02] MEDS: cefTRIAXone 1GM/50ML D5W 50 ML IV SCH (08:57)
[2019-11-02] MEDS: ZINC SULFATE 220mg CAP or TAB PO SCH (08:57)
[2019-11-02] MEDS: FUROSEMIDE 20 MG/2 ML VIAL IV SCH (08:57)
[2019-11-02] MEDS: ENOXAPARIN SOD 100 MG/1 ML SYRINGE SC SCH (08:58)
[2019-11-02] MEDS: ASCORBIC ACID 1,000 MG TAB PO SCH (08:58)
[2019-11-02] MEDS: DOXYCYCLINE 100 MG TAB/CAP PO SCH (08:58)
[2019-11-02] MEDS: CHOLECALCIFEROL (VITD3) 1,000UNIT=25mCg TAB PO SCH (08:58)
[2019-11-02] MEDS: POTASSIUM EFFERVESENT TAB 25 MEQ PO SCH (08:58)
[2019-11-02 09:04] VITALS: BP 126/79
[2019-11-02] MEDS: MORPHINE SULF INJ 2 MG/ML SYRINGE 1ML IV PRN (09:11)
[2019-11-02] MEDS: HYDROcodone-ACET 5/325MG TAB PO PRN (11:42)
[2019-11-02 13:00] VITALS: BP 126/77
[2019-11-02] MEDS ORDERED: DOX100T PO (13:19)
[2019-11-02] MEDS ORDERED: METF-370 PO (13:24)
[2019-11-02 13:34] VITALS: BP 135/87
--- NOTE | 2019-11-02 16:13 | NUR ---
D/C Planning Regarding social service consult for home oxygen. Faxed clinical information to [employer]. Per Charla with [employer] home oxygen was deliver to front lobby at 15:21. Informed JUVE Lenz.
[2019-11-02 16:30] VITALS: BP 125/71
--- NOTE | 2019-11-02 17:32 | NUR ---
Discharge instructions given as ordered. Encourage to follow up with PMD as instructed. All questions and concerns addressed. Patient verbalized understanding.. IV removed with catheter intact, pressure dressing applied,. Telemetry unit returned to ICU. Patient taken to vehicle via wheelchair with all personal belongings, accompanied by staff and family member. No distress noted at time of departure.
== END 2019-11-02 17:20 | disposition home or self-care (01) | DRG 871 ==
LOC: EDBD 10:09 → ER 10:09 → TELE 10:10 → TELE-EAST 17:10
PROVIDERS: ADMIT Hospitalist; ATTEND Internal Medicine Nephrology
PROC: 30233L1 Transfusion of Nonautologous Fresh Plasma into Peripheral Vein, Percutaneous Approach (ICD-10-PCS; principal; 2019-10-26)
PROC: 30233K1 Transfusion of Nonautologous Frozen Plasma into Peripheral Vein, Percutaneous Approach (ICD-10-PCS; 2019-10-26)
DX: A41.89 Other specified sepsis (principal); U07.1 COVID-19; J12.89 Other viral pneumonia; J96.01 Acute respiratory failure with hypoxia; E87.2 Acidosis; J98.11 Atelectasis; N39.0 Urinary tract infection, site not specified; E78.5 Hyperlipidemia, unspecified; E66.01 Morbid (severe) obesity due to excess calories; M19.90 Unspecified osteoarthritis, unspecified site; G89.29 Other chronic pain; E78.00 Pure hypercholesterolemia, unspecified; M54.9 Dorsalgia, unspecified; G62.9 Polyneuropathy, unspecified; R65.20 Severe sepsis without septic shock; E11.65 Type 2 diabetes mellitus with hyperglycemia; F41.9 Anxiety disorder, unspecified; E11.9 Type 2 diabetes mellitus without complications; Z79.899 Other long term (current) drug therapy; Z82.61 Family history of arthritis; Z82.5 Family history of asthma and other chronic lower respiratory diseases; Z82.49 Family history of ischemic heart disease and other diseases of the circulatory system; Z68.34 Body mass index [BMI] 34.0-34.9, adult
CPT/HCPCS: 36415; 71045; 80053; 80061; 80307; 81001; 82728; 82962; 83036; 83605; 83615; 83735; 83880; 84100; 84443; 84484; 84550; 84702; 85025; 85379; 85610; 85652; 85730; 86141; 86850; 86900; 86901; 87040; 87086; 93005; 94640; 96365; 96375; 99291; G0378; J0696; J1100; J1815; J2405

== ENCOUNTER 2019-11-24 14:13 | Inpatient (IN) | payer BC ==
[~2019-11-24] VITALS: Ht 170.2 cm; Wt 102.4 kg
[~2019-11-24 14:13] MED LIST changes: -DICL-176 PO; +DOX100T PO; +DOXE6TAB4 PO; -GABA-339 PO; +GLIP5TAB12 PO; +METF-370 PO; -METH750T3 PO; +NORGTAB59 PO; +PROP20TA73 PO; +TIZA4CAP PO
[2019-11-24] MEDS ORDERED: ASCORBIC ACID 500 MG TAB PO ONE (14:45)
[2019-11-24] MEDS ORDERED: ZINC SULFATE 220mg CAP or TAB PO ONE (14:45)
[2019-11-24] MEDS ORDERED: methylPREDNISolone SOD SUCC 125 MG/2 ML VL IV ONE (14:45)
[2019-11-24 15:21] LABS: Basophils # (auto) 0.1 10 ^3/uL (0-0.2); Basophils % (auto) 0.6 % (0.0-2.0); Eosinophils # (auto) 0.2 10 ^3/uL (0-0.8); Eosinophils % (auto) 1.7 % (0.0-7.0); Hemoglobin 13.9 g/dL (12.2-16.2); Lymphocytes # (auto) 2.5 10 ^3/uL (0.4-5.4); Mean Corpuscular Hemoglobin 32.4 pg (28.0-32.0); Mean Corpuscular Hgb Conc. 33.2 g/dL (32.0-36.0); Mean Corpuscular Volume 97.7 fL (80.0-100.0); Monocytes # (auto) 0.9 10 ^3/uL (0-1.3); Monocytes % (auto) 7.6 % (0.0-12.0); Neutrophils # (auto) 7.8 10 ^3/uL (1.6-8.6); Neutrophils % (auto) 68.1 % (37.0-80.0); Platelet Count (auto) 334 10^3/uL (140-450); Red Cell Distribution Width 14.3 % (11.8-14.3); White Blood Cell 11.4 10^3/uL (4.4-10.8)
[2019-11-24 15:32] LABS: Albumin 3.9 g/dL (3.4-5.0); Calcium 9.8 mg/dL (8.5-10.1); Magnesium 1.6 mg/dL (1.6-2.6); Potassium 3.5 mmol/L (3.5-5.1)
[2019-11-24 15:35] LABS: Lactic Acid w/Reflex 2.7 mmol/L (0.4-2.0)
[2019-11-24 15:37] LABS: BUN/Creatinine Ratio 34.4; Bilirubin, Total 0.5 mg/dL (0.2-1.0); Total Protein 7.6 g/dL (6.4-8.2)
[2019-11-24] MEDS ORDERED: SODIUM CHLORIDE 0.9% 1,000 ML IV SCH (15:46)
[2019-11-24] MEDS ORDERED: DOCUSATE SOD 100 MG CAP PO PRN (16:00)
[2019-11-24] MEDS ORDERED: NIFEdipine ER 30 MG TAB PO ONE (16:00)
[2019-11-24] MEDS ORDERED: FUROSEMIDE 20 MG/2 ML VIAL IV ONE (16:00)
[2019-11-24] MEDS ORDERED: ACETAMINOPHEN 500 MG TAB PO PRN (16:00)
[2019-11-24] MEDS ORDERED: NITROGLYCERIN 0.4 MG SL TAB SL PRN (16:00)
[2019-11-24] MEDS ORDERED: DEXTROSE (50%) 50ML SYRG IV PRN (16:00)
[2019-11-24] MEDS ORDERED: MORPHINE SULF INJ 2 MG/ML SYRINGE 1ML IV PRN (16:00)
[2019-11-24] MEDS ORDERED: ACETAMINOPHEN 325 MG TAB PO PRN (16:00)
[2019-11-24] MEDS ORDERED: ALUM & MAG HYDROX-SIMETH LIQ(MAALOX) 30 ML PO PRN (16:00)
[2019-11-24] MEDS: ACCU-CHEK COMFORT CURVE STRIP VI SCH ×2 (16:35→22:53)
[2019-11-24] MEDS: InsuLIN REG 1unit/0.01ml Soln (100units/ml) SC SCH ×2 (16:35→22:54)
[2019-11-24] MEDS: FUROSEMIDE 20 MG/2 ML VIAL IV SCH (16:36)
[2019-11-24 16:48] LABS: Cholesterol 133 mg/dL (< 200); HDL Cholesterol 34 mg/dL (40-59); Triglycerides 637 mg/dL (< 150)
[2019-11-24 16:49] LABS: CRP High Sensitivity 1.5 mg/dL (< 0.3)
--- NOTE | 2019-11-24 20:30 | NUR ---
Telemetry admit from [facility] admitted to Telemetry unit after SBAR received. Patient oriented to FRANCK VASQUEZ RN primary RN, MST unit, room 240, bed B, and unit policies regarding patient care and visiting hours. Patient now on continuous telemetry monitoring, tele box #8 and telemetry reading on arrival to unit is sinus tach in the 90s. Patient placed on bedside oxygen, weighed by bed scale and encouraged to call if they need something. All questions and concerns addressed, patient verbalized understanding. Note: Patient on 2L of oxygen via NC with even and unlabored respirations, no S/S of distress SOB or pain. Patient able to ambulate independently, bed in lowest locked position, side rails up x2, and call light within reach. Will continue to monitor Q1hr PRN.
[2019-11-24] MEDS: ONDANSETRON HCL 4 MG/2 ML VIAL IV PRN (21:00)
[2019-11-24] MEDS: MORPHINE SULF INJ 2 MG/ML SYRINGE 1ML IV PRN (21:00)
[2019-11-24] MEDS: SOD CHL 0.45% 1,000 ML IV SCH (21:44)
[2019-11-24 22:00] VITALS: BP 154/106
[2019-11-24] MEDS ORDERED: BUDESONIDE (INHALATION) 180 MCG IH IN SCH (22:00)
[2019-11-24] MEDS ORDERED: ALBUTEROL SULF HFA 90MCG INH 200DOSE IN SCH (22:00)
[2019-11-24] MEDS ORDERED: ATORVASTATIN 20 MG TAB PO SCH (22:00)
[2019-11-24] MEDS: DOXYCYCLINE 100MG/250ML 250 ML IV SCH (22:32)
[2019-11-24] MEDS: ATORVASTATIN 20 MG TAB PO SCH (22:33)
[2019-11-24] MEDS: LORazepam 0.5 MG TAB PO PRN (23:00)
[2019-11-25] MEDS: MORPHINE SULF INJ 2 MG/ML SYRINGE 1ML IV PRN ×5 (02:15→23:20)
[2019-11-25] MEDS: ONDANSETRON HCL 4 MG/2 ML VIAL IV PRN ×3 (02:15→19:22)
[2019-11-25] MEDS: CYCLOBENZAPRINE HCL 10 MG TAB PO PRN (04:28)
[2019-11-25 05:00] VITALS: BP 139/79
[2019-11-25] MEDS: HYDROcodone-ACET 5/325MG TAB PO PRN ×4 (05:35→21:32)
--- NOTE | 2019-11-25 05:59 | NUR ---
PATIENT TRANSFERRED TO [facility] UNIT ROOM 272. REPORT GIVEN TO JUVE MOSLEY, PATIENT TRANSFERRED BY WHEELCHAIR, NO S/S OF DISTRESS OR SOB, PATIENT TOLERATED WELL. PATIENT'S PERSONAL OXYGEN TANK AND ALL BELONGINGS WENT WITH PATIENT.
--- NOTE | 2019-11-25 06:00 | NUR ---
Patient transferred from [facility] via wheelchair. Received report from Cooper AN. Patient A&Ox4. No s/s of distress or pain. Patient oriented to unit. Patient verbalized understanding. Tele box switched to tele #79. Safety measured maintained by keeping the bed locked in lowest position, 2 side rails up, personal items and call light within reach. Will continue to monitor.
[2019-11-25] MEDS: FUROSEMIDE 20 MG/2 ML VIAL IV SCH ×2 (06:01→19:20)
[2019-11-25] MEDS: InsuLIN REG 1unit/0.01ml Soln (100units/ml) SC SCH ×4 (06:53→22:19)
[2019-11-25] MEDS: ACCU-CHEK COMFORT CURVE STRIP VI SCH ×4 (06:54→22:19)
[2019-11-25 07:17] LABS: Urine Bacteria NONE SEEN /hpf (None Seen); Urine Blood Negative /uL (Negative); Urine Specific Gravity 1.007 (1.001-1.035); Urine WBC <1 /hpf (0 - 5)
[2019-11-25] MEDS ORDERED: GABA-339 PO (07:20)
[2019-11-25] MEDS ORDERED: LISI2.5T47 PO (07:20)
[2019-11-25 07:32] LABS: Alcohol, Urine < 3.0 mg/dL (0-10); Amphetamine Screen, Urine NEGATIVE (NEGATIVE); Barbiturate Scree,Urine NEGATIVE (NEGATIVE); Benzodiazephine Screen, Urine NEGATIVE (NEGATIVE); Cannabinoid Screen, Urine NEGATIVE (NEGATIVE); Cocaine Screen, Urine NEGATIVE (NEGATIVE); Opiate Scree,Urine NEGATIVE (NEGATIVE); Phencyclidine Screen, Urine NEGATIVE (NEGATIVE)
[2019-11-25 09:00] VITALS: BP 146/86
[2019-11-25] MEDS: DOXYCYCLINE 100MG/250ML 250 ML IV SCH ×2 (09:37→22:15)
[2019-11-25] MEDS: ENOXAPARIN SOD 40 MG/0.4 ML SYRINGE SC SCH (09:37)
[2019-11-25] MEDS: DexAMETHasone SOD PHOS 10MG/1ML VIAL INJ IV SCH (09:38)
[2019-11-25] MEDS: CHOLECALCIFEROL (VITD3) 2,000 UNIT CAP PO SCH (09:40)
[2019-11-25] MEDS: ASPirin 81 mg TAB PO SCH (09:40)
[2019-11-25] MEDS: NIFEdipine ER 30 MG TAB PO SCH (09:41)
[2019-11-25] MEDS: ZINC SULFATE 220mg CAP or TAB PO SCH (09:42)
[2019-11-25] MEDS ORDERED: ASCORBIC ACID 1,000 MG TAB PO SCH (10:00)
[2019-11-25] MEDS ORDERED: ASPirin 81 mg TAB PO SCH (10:00)
[2019-11-25 10:33] LABS: Basophils # (auto) 0 10 ^3/uL (0-0.2); Basophils % (auto) 0.3 % (0.0-2.0); Eosinophils # (auto) 0 10 ^3/uL (0-0.8); Hemoglobin 13.1 g/dL (12.2-16.2); Lymphocytes # (auto) 2.1 10 ^3/uL (0.4-5.4); Lymphocytes % (auto) 15.9 % (10.0-50.0); Mean Corpuscular Hemoglobin 32.5 pg (28.0-32.0); Mean Corpuscular Hgb Conc. 33.7 g/dL (32.0-36.0); Mean Corpuscular Volume 96.4 fL (80.0-100.0); Monocytes % (auto) 7.9 % (0.0-12.0); Neutrophils # (auto) 9.8 10 ^3/uL (1.6-8.6); Neutrophils % (auto) 75.9 % (37.0-80.0); Platelet Count (auto) 330 10^3/uL (140-450); Red Blood Cells 4.05 10^6/uL (4.0-5.20); Red Cell Distribution Width 14.2 % (11.8-14.3); White Blood Cell 12.9 10^3/uL (4.4-10.8)
[2019-11-25 10:41] LABS: Potassium 3.1 mmol/L (3.5-5.1)
[2019-11-25 10:45] LABS: INR 0.99 (0.9-1.15); Partial Thromboplastin Time 25.5 sec (23.0-31.2)
[2019-11-25 10:48] LABS: Albumin 3.9 g/dL (3.4-5.0); BUN/Creatinine Ratio 16.5; Bilirubin, Total 0.5 mg/dL (0.2-1.0); Calcium 9.3 mg/dL (8.5-10.1); Magnesium 1.4 mg/dL (1.6-2.6); Phosphorus 2.6 mg/dL (2.5-4.90); Total Protein 7.7 g/dL (6.4-8.2)
[2019-11-25] MEDS: SOD CHL 0.45% 1,000 ML IV SCH (10:50)
[2019-11-25 13:00] VITALS: BP 149/96
[2019-11-25 17:00] VITALS: BP 131/84
[2019-11-25] MEDS ORDERED: ZOLPIDEM TARTRATE 5 MG TAB PO ONE (18:30)
[2019-11-25] MEDS ORDERED: FLUCONAZOLE 200MG/100ML 100 ML IV ONE (18:30)
--- NOTE | 2019-11-25 18:33 | NUR ---
Midline Placement: Patient educated on need for midline placement. All risks and benefits explained and all questions and concerns addresses prior to procedure. 4FR 20cm midline inserted via RIGHT BASILIC vein using Ultrasound. Sterile technique utilized. Blood return obtained from THE SINGLE lumen and flushed easily with NS using proper technique. Midline secured with saline lock; biodisc and occlusive dressing applied. Primary RN notified. Midline lot #[id number]. INTERNAL LENGTH 20CM EXTERNAL LENGTH 0CM
[2019-11-25] MEDS: POTASSIUM CHL 20MEQ/100ML 100 ML IV SCH (19:16)
--- NOTE | 2019-11-25 19:49 | NUR ---
CLOSING NOTES Patient awake and alert. No S/S of distress/SOB or pain. ENDORSED CARE TO JUVE PHILLIP.
--- NOTE | 2019-11-25 19:50 | NUR ---
assumed care, pt. awake, no c/o pain, not in distress.
[2019-11-25] MEDS: ATORVASTATIN 20 MG TAB PO SCH (21:31)
[2019-11-25 21:35] VITALS: BP 134/83
[2019-11-25] MEDS ORDERED: MAGNESIUM SULFATE 1GM/100ML 100 ML IV ONE (23:14)
[2019-11-25] MEDS: MAGNESIUM SULFATE 1GM/100ML 100 ML IV SCH (23:34)
[2019-11-26] MEDS: SOD CHL 0.45% 1,000 ML IV SCH ×2 (00:10→13:52)
[2019-11-26] MEDS: MAGNESIUM SULFATE 1GM/100ML 100 ML IV SCH (01:00)
[2019-11-26] MEDS: HYDROcodone-ACET 5/325MG TAB PO PRN ×4 (01:45→16:30)
[2019-11-26] MEDS: POTASSIUM CHL 20MEQ/100ML 100 ML IV SCH (02:10)
[2019-11-26] MEDS: ONDANSETRON HCL 4 MG/2 ML VIAL IV PRN ×3 (04:07→18:43)
[2019-11-26] MEDS: MORPHINE SULF INJ 2 MG/ML SYRINGE 1ML IV PRN ×5 (04:07→22:38)
[2019-11-26 05:00] VITALS: BP 118/63
[2019-11-26] MEDS: FUROSEMIDE 20 MG/2 ML VIAL IV SCH ×2 (05:36→17:33)
[2019-11-26 06:03] LABS: Basophils # (auto) 0.1 10 ^3/uL (0-0.2); Basophils % (auto) 0.7 % (0.0-2.0); Eosinophils # (auto) 0 10 ^3/uL (0-0.8); Eosinophils % (auto) 0.3 % (0.0-7.0); Hematocrit 36.7 % (36.0-46.0); Hemoglobin 12.6 g/dL (12.2-16.2); Lymphocytes # (auto) 2.9 10 ^3/uL (0.4-5.4); Lymphocytes % (auto) 25.6 % (10.0-50.0); Mean Corpuscular Hemoglobin 33.1 pg (28.0-32.0); Mean Corpuscular Hgb Conc. 34.4 g/dL (32.0-36.0); Mean Corpuscular Volume 96.3 fL (80.0-100.0); Monocytes # (auto) 1.1 10 ^3/uL (0-1.3); Monocytes % (auto) 9.4 % (0.0-12.0); Neutrophils # (auto) 7.3 10 ^3/uL (1.6-8.6); Nucleated Red Blood Cells % 0.2 %; Platelet Count (auto) 322 10^3/uL (140-450); Red Blood Cells 3.81 10^6/uL (4.0-5.20); Red Cell Distribution Width 14.3 % (11.8-14.3); White Blood Cell 11.5 10^3/uL (4.4-10.8)
[2019-11-26] MEDS: ACCU-CHEK COMFORT CURVE STRIP VI SCH ×4 (06:08→22:02)
[2019-11-26] MEDS: InsuLIN REG 1unit/0.01ml Soln (100units/ml) SC SCH ×4 (06:08→22:03)
[2019-11-26 06:17] LABS: Calcium 8.8 mg/dL (8.5-10.1); Potassium 3.5 mmol/L (3.5-5.1)
[2019-11-26 06:21] LABS: Lactic Acid w/Reflex 2.9 mmol/L (0.4-2.0)
--- NOTE | 2019-11-26 07:30 | NUR ---
Opening Shift Note Assumed care of patient, awake and alert. No S/S of distress/SOB or pain. Instructed on POC and to call for assistance PRN, will continue to monitor for changes Q1hr and PRN.
[2019-11-26 08:35] VITALS: BP 116/76
[2019-11-26] MEDS: DexAMETHasone SOD PHOS 10MG/1ML VIAL INJ IV SCH (10:00)
[2019-11-26] MEDS: ZINC SULFATE 220mg CAP or TAB PO SCH (10:24)
[2019-11-26] MEDS: DOXYCYCLINE 100MG/250ML 250 ML IV SCH ×2 (10:24→22:01)
[2019-11-26] MEDS: CYCLOBENZAPRINE HCL 10 MG TAB PO PRN (10:24)
[2019-11-26] MEDS: ENOXAPARIN SOD 40 MG/0.4 ML SYRINGE SC SCH (10:25)
[2019-11-26] MEDS: ASCORBIC ACID 500 MG TAB PO SCH (10:25)
[2019-11-26] MEDS: ASPirin 81 mg TAB PO SCH (10:25)
[2019-11-26] MEDS: CHOLECALCIFEROL (VITD3) 2,000 UNIT CAP PO SCH (10:25)
[2019-11-26] MEDS: NIFEdipine ER 30 MG TAB PO SCH (10:26)
--- NOTE | 2019-11-26 12:50 | NUR ---
Patient arrived as transfer from tele unit, alert and oriented x4, on 2L NC. Patient respirations are even and unlabored. patient emotional about having to be on the covid unit, however is compliant with care.
[2019-11-26 12:54] VITALS: BP 111/70
--- NOTE | 2019-11-26 14:22 | NUR ---
patient on arrival 99% on 2 L, checked patient 02 sat without oxygen patient at 94%, explained to patient that she does not need oxygen since she is saturating very well. Patient verbalized understanding of instructions.
[2019-11-26 16:21] VITALS: BP 132/85
[2019-11-26] MEDS ORDERED: LACTATED RINGER'S 1,000 ML IV ONE (19:00)
[2019-11-26] MEDS: ATORVASTATIN 20 MG TAB PO SCH (22:02)
[2019-11-26] MEDS: LORazepam 0.5 MG TAB PO PRN (22:02)
[2019-11-26 22:42] VITALS: BP 139/56
[2019-11-26] MEDS ORDERED: TEMAZEPAM 15 MG CAP PO ONE (23:00)
[2019-11-27] MEDS: HYDROcodone-ACET 5/325MG TAB PO PRN ×3 (00:41→15:41)
[2019-11-27 05:00] VITALS: BP 126/81
[2019-11-27] MEDS: InsuLIN REG 1unit/0.01ml Soln (100units/ml) SC SCH ×4 (06:33→22:04)
[2019-11-27] MEDS: ACCU-CHEK COMFORT CURVE STRIP VI SCH ×4 (06:33→21:54)
[2019-11-27] MEDS: FUROSEMIDE 20 MG/2 ML VIAL IV SCH ×2 (06:33→18:35)
[2019-11-27 06:39] LABS: Basophils # (auto) 0.1 10 ^3/uL (0-0.2); Eosinophils # (auto) 0.2 10 ^3/uL (0-0.8); Eosinophils % (auto) 1.6 % (0.0-7.0); Hematocrit 36.2 % (36.0-46.0); Hemoglobin 12.4 g/dL (12.2-16.2); Lymphocytes # (auto) 4.2 10 ^3/uL (0.4-5.4); Lymphocytes % (auto) 41.9 % (10.0-50.0); Mean Corpuscular Hemoglobin 33.1 pg (28.0-32.0); Mean Corpuscular Hgb Conc. 34.2 g/dL (32.0-36.0); Mean Corpuscular Volume 96.8 fL (80.0-100.0); Monocytes % (auto) 9.7 % (0.0-12.0); Neutrophils # (auto) 4.7 10 ^3/uL (1.6-8.6); Neutrophils % (auto) 45.8 % (37.0-80.0); Nucleated Red Blood Cells % 0.1 %; Platelet Count (auto) 318 10^3/uL (140-450); Red Blood Cells 3.74 10^6/uL (4.0-5.20); White Blood Cell 10.1 10^3/uL (4.4-10.8)
[2019-11-27 08:50] VITALS: BP 135/80
[2019-11-27] MEDS: DOXYCYCLINE 100MG/250ML 250 ML IV SCH ×2 (10:40→21:54)
[2019-11-27] MEDS: ENOXAPARIN SOD 40 MG/0.4 ML SYRINGE SC SCH (10:41)
[2019-11-27] MEDS: CHOLECALCIFEROL (VITD3) 2,000 UNIT CAP PO SCH (10:41)
[2019-11-27] MEDS: NIFEdipine ER 30 MG TAB PO SCH (10:41)
[2019-11-27] MEDS: ZINC SULFATE 220mg CAP or TAB PO SCH (10:42)
[2019-11-27] MEDS: DexAMETHasone SOD PHOS 10MG/1ML VIAL INJ IV SCH (10:42)
[2019-11-27] MEDS: ASPirin 81 mg TAB PO SCH (10:42)
[2019-11-27] MEDS: ASCORBIC ACID 500 MG TAB PO SCH (10:42)
[2019-11-27 12:03] LABS: Albumin 3.4 g/dL (3.4-5.0); Calcium 8.1 mg/dL (8.5-10.1); Potassium 3.1 mmol/L (3.5-5.1)
[2019-11-27 12:06] LABS: BUN/Creatinine Ratio 23.2; Bilirubin, Total 0.7 mg/dL (0.2-1.0); Total Protein 6.8 g/dL (6.4-8.2)
[2019-11-27 13:00] VITALS: BP 147/89
[2019-11-27] MEDS: MORPHINE SULF INJ 2 MG/ML SYRINGE 1ML IV PRN ×2 (13:58→22:05)
[2019-11-27 17:01] VITALS: BP 138/90
[2019-11-27] MEDS ORDERED: POTASSIUM CHL 20MEQ/100ML 100 ML IV SCH (18:00)
[2019-11-27] MEDS ORDERED: ZOLPIDEM TARTRATE 5 MG TAB PO ONE (18:00)
[2019-11-27] MEDS ORDERED: POTASSIUM EFFERVESENT TAB 25 MEQ PO ONE (18:15)
--- NOTE | 2019-11-27 19:30 | NUR ---
Opening Shift Note Assumed care of patient, awake and alert. No S/S of distress/SOB. Instructed on POC and to call for assist PRN, will continue to monitor for changes Q1hr and PRN.
[2019-11-27 20:21] LABS: BUN/Creatinine Ratio 15.8; Calcium 8.6 mg/dL (8.5-10.1); Potassium 4.4 mmol/L (3.5-5.1)
[2019-11-27] MEDS: CYCLOBENZAPRINE HCL 10 MG TAB PO PRN (20:44)
[2019-11-27 21:30] VITALS: BP 120/69
[2019-11-27] MEDS: ATORVASTATIN 20 MG TAB PO SCH (21:54)
[2019-11-28] MEDS: MORPHINE SULF INJ 2 MG/ML SYRINGE 1ML IV PRN ×7 (01:35→21:18)
[2019-11-28] MEDS: CYCLOBENZAPRINE HCL 10 MG TAB PO PRN (05:43)
[2019-11-28] MEDS: FUROSEMIDE 20 MG/2 ML VIAL IV SCH ×2 (05:43→17:48)
[2019-11-28 05:45] VITALS: BP 149/89
[2019-11-28] MEDS: ACCU-CHEK COMFORT CURVE STRIP VI SCH ×4 (06:57→22:03)
[2019-11-28] MEDS: InsuLIN REG 1unit/0.01ml Soln (100units/ml) SC SCH ×4 (06:58→22:13)
[2019-11-28 08:43] LABS: Basophils # (auto) 0.1 10 ^3/uL (0-0.2); Basophils % (auto) 0.5 % (0.0-2.0); Eosinophils # (auto) 0 10 ^3/uL (0-0.8); Eosinophils % (auto) 0.3 % (0.0-7.0); Hematocrit 39.4 % (36.0-46.0); Hemoglobin 13.4 g/dL (12.2-16.2); Lymphocytes # (auto) 3.9 10 ^3/uL (0.4-5.4); Lymphocytes % (auto) 27.2 % (10.0-50.0); Mean Corpuscular Hemoglobin 33.1 pg (28.0-32.0); Mean Corpuscular Volume 97.4 fL (80.0-100.0); Monocytes # (auto) 1.3 10 ^3/uL (0-1.3); Monocytes % (auto) 8.8 % (0.0-12.0); Neutrophils # (auto) 9.1 10 ^3/uL (1.6-8.6); Neutrophils % (auto) 63.2 % (37.0-80.0); Nucleated Red Blood Cells % 0.2 %; Platelet Count (auto) 368 10^3/uL (140-450); Red Blood Cells 4.04 10^6/uL (4.0-5.20); Red Cell Distribution Width 14.2 % (11.8-14.3); White Blood Cell 14.3 10^3/uL (4.4-10.8)
[2019-11-28 09:00] VITALS: BP 149/99
[2019-11-28 09:00] LABS: Potassium 3.4 mmol/L (3.5-5.1)
[2019-11-28 09:06] LABS: BUN/Creatinine Ratio 23.7; Bilirubin, Total 0.6 mg/dL (0.2-1.0); Calcium 8.6 mg/dL (8.5-10.1); Total Protein 7.6 g/dL (6.4-8.2)
[2019-11-28] MEDS: HYDROcodone-ACET 5/325MG TAB PO PRN ×3 (09:30→20:18)
[2019-11-28] MEDS: DexAMETHasone SOD PHOS 10MG/1ML VIAL INJ IV SCH (09:33)
[2019-11-28] MEDS: ZINC SULFATE 220mg CAP or TAB PO SCH (09:33)
[2019-11-28] MEDS: ASPirin 81 mg TAB PO SCH (09:33)
[2019-11-28] MEDS: DOXYCYCLINE 100MG/250ML 250 ML IV SCH ×2 (09:33→22:11)
[2019-11-28] MEDS: ASCORBIC ACID 500 MG TAB PO SCH (09:34)
[2019-11-28] MEDS: CHOLECALCIFEROL (VITD3) 2,000 UNIT CAP PO SCH (09:34)
[2019-11-28] MEDS: NIFEdipine ER 30 MG TAB PO SCH (09:34)
[2019-11-28] MEDS: ENOXAPARIN SOD 40 MG/0.4 ML SYRINGE SC SCH (09:35)
[2019-11-28 13:00] VITALS: BP 148/81
[2019-11-28] MEDS: LORazepam 0.5 MG TAB PO PRN ×2 (13:00→22:23)
--- NOTE | 2019-11-28 14:11 | NUR ---
Est energy needs 3096-1417 kcal (18-20 kcal/kg BW 102.1kg) Est protein needs 61-80g (1-1.3g/kg IBW 61.4kg) Will reassess prn. Addendum: 11/28/19 at [address] Amended: Links added.
[2019-11-28] MEDS ORDERED: POTASSIUM CHL 20 Meq TABLET PO ONE (16:00)
[2019-11-28 17:00] VITALS: BP 131/79
--- NOTE | 2019-11-28 19:26 | NUR ---
Opening Shift Note Assumed care of patient after receiving report from Melvi. Patient is awake and alert with no S/S of distress/SOB or pain. Call light within reach, bed in lowest locked position and HOB semi fowlers. Instructed on POC and to call for assist PRN, will continue to monitor for changes Q1hr and PRN.
--- NOTE | 2019-11-28 20:18 | NUR ---
Pain assessment Patient complains of pain 8/10, requesting NORCO. Patient PRN morphine for severe pain 7-10/10 not due at this time. Patient given Alpha PRN. Will reassess.
[2019-11-28 22:00] VITALS: BP 143/102
--- NOTE | 2019-11-28 22:10 | NUR ---
Paged Hospitalist, patient requesting shower. Patient on tele with no order to shower. Received new order via telephone from MD Nathalie after verification.
[2019-11-28] MEDS: ENOXAPARIN SOD 100 MG/1 ML SYRINGE SC SCH (22:11)
[2019-11-28] MEDS: ATORVASTATIN 20 MG TAB PO SCH (22:19)
--- NOTE | 2019-11-28 23:36 | NUR ---
Shower Patient requested shower. After receiving order from Dr. Zelaya, patient was provided with toiletries for shower and clean gown. Patient was provided with portable O2 if experienced SOB. Patient tolerated shower well with no complaints of pain, SOB, or any distress noted. Complete bed linen change performed at this. Patient resting in bed back on telemetry monitoring with O2 via NC.
[2019-11-29] MEDS: MORPHINE SULF INJ 2 MG/ML SYRINGE 1ML IV PRN ×7 (00:30→21:59)
[2019-11-29 05:00] VITALS: BP 121/64
[2019-11-29] MEDS: ACCU-CHEK COMFORT CURVE STRIP VI SCH ×4 (06:31→21:59)
[2019-11-29] MEDS: FUROSEMIDE 20 MG/2 ML VIAL IV SCH ×2 (06:31→18:08)
[2019-11-29] MEDS: InsuLIN REG 1unit/0.01ml Soln (100units/ml) SC SCH ×4 (06:32→22:01)
[2019-11-29] MEDS: ASPirin 81 mg TAB PO SCH (08:58)
[2019-11-29] MEDS: ASCORBIC ACID 500 MG TAB PO SCH (08:58)
[2019-11-29] MEDS: CHOLECALCIFEROL (VITD3) 2,000 UNIT CAP PO SCH (08:59)
[2019-11-29] MEDS: NIFEdipine ER 30 MG TAB PO SCH (08:59)
[2019-11-29] MEDS: ENOXAPARIN SOD 100 MG/1 ML SYRINGE SC SCH ×2 (08:59→21:59)
[2019-11-29] MEDS: ZINC SULFATE 220mg CAP or TAB PO SCH (08:59)
[2019-11-29 09:00] VITALS: BP 151/96
[2019-11-29] MEDS: DOXYCYCLINE 100MG/250ML 250 ML IV SCH (09:00)
[2019-11-29] MEDS: DexAMETHasone SOD PHOS 10MG/1ML VIAL INJ IV SCH (09:00)
[2019-11-29] MEDS: CYCLOBENZAPRINE HCL 10 MG TAB PO PRN (09:19)
[2019-11-29] MEDS: ONDANSETRON HCL 4 MG/2 ML VIAL IV PRN ×3 (11:05→18:09)
[2019-11-29] MEDS: HYDROcodone-ACET 5/325MG TAB PO PRN ×3 (12:08→20:50)
[2019-11-29 13:00] VITALS: BP 144/81
[2019-11-29] MEDS: BUDESONIDE (INHALATION) 180 MCG IH IN SCH ×2 (16:35→22:28)
[2019-11-29] MEDS: ALBUTEROL SULF HFA 90MCG INH 200DOSE IN SCH ×2 (16:36→22:28)
[2019-11-29 17:00] VITALS: BP 157/84
[2019-11-29 18:59] VITALS: BP 157/82
--- NOTE | 2019-11-29 19:25 | NUR ---
Opening Shift Note Assumed care of patient after receiving report. Patient is awake and alert with no S/S of distress/SOB or pain. Call light within reach, bed in lowest locked position, HOB semi fowlers. Instructed on POC and to call for assist PRN, will continue to monitor for changes Q1hr and PRN.
[2019-11-29] MEDS: ZOLPIDEM TARTRATE 5 MG TAB PO PRN (21:58)
[2019-11-29] MEDS: ATORVASTATIN 20 MG TAB PO SCH (21:58)
[2019-11-29 22:00] VITALS: BP 156/109
[2019-11-30] MEDS: hydrALAZINE HCL 20 MG/ML VL IV PRN ×2 (00:08→21:51)
[2019-11-30] MEDS: MORPHINE SULF INJ 2 MG/ML SYRINGE 1ML IV PRN ×7 (01:23→23:15)
[2019-11-30] MEDS: ONDANSETRON HCL 4 MG/2 ML VIAL IV PRN ×2 (04:36→09:17)
[2019-11-30 05:00] VITALS: BP 148/91
[2019-11-30 06:20] LABS: Potassium 3.3 mmol/L (3.5-5.1)
[2019-11-30] MEDS: FUROSEMIDE 20 MG/2 ML VIAL IV SCH ×2 (06:23→19:01)
[2019-11-30] MEDS: HYDROcodone-ACET 5/325MG TAB PO PRN ×3 (06:24→20:40)
[2019-11-30] MEDS: ACCU-CHEK COMFORT CURVE STRIP VI SCH ×4 (06:25→21:52)
[2019-11-30] MEDS: InsuLIN REG 1unit/0.01ml Soln (100units/ml) SC SCH ×4 (06:26→21:53)
[2019-11-30] MEDS: ALBUTEROL SULF HFA 90MCG INH 200DOSE IN SCH ×3 (06:56→22:28)
[2019-11-30] MEDS: BUDESONIDE (INHALATION) 180 MCG IH IN SCH ×2 (06:57→22:28)
--- NOTE | 2019-11-30 07:20 | NUR ---
OPENING NOTE ASSUME CARE OF PT. ALERT AND ORIENTED. NO S/S OF SOB/DISTRESS NOTED. BED SET TO LOWEST POSITION/LOCKED, BEDSIDE RAILS UP X2, CALL LIGHT WITHIN REACH. INSTRUCTED PT TO CALL FOR ASSISTANCE. UPDATED ON POC. WILL CONTINUE TO MONITOR Q1HR AND PRN.
[2019-11-30 09:00] VITALS: BP 146/94
[2019-11-30] MEDS: DexAMETHasone SOD PHOS 10MG/1ML VIAL INJ IV SCH (09:03)
[2019-11-30] MEDS: ASPirin 81 mg TAB PO SCH (09:06)
[2019-11-30] MEDS: ZINC SULFATE 220mg CAP or TAB PO SCH (09:06)
[2019-11-30] MEDS: ENOXAPARIN SOD 100 MG/1 ML SYRINGE SC SCH ×2 (09:08→21:51)
[2019-11-30] MEDS: CHOLECALCIFEROL (VITD3) 2,000 UNIT CAP PO SCH (09:08)
[2019-11-30] MEDS: ASCORBIC ACID 500 MG TAB PO SCH (09:08)
[2019-11-30] MEDS: NIFEdipine ER 30 MG TAB PO SCH (09:08)
[2019-11-30] MEDS ORDERED: POTASSIUM EFFERVESENT TAB 25 MEQ GT ONE (09:15)
[2019-11-30] MEDS ORDERED: ACETAMINOPHEN 325 MG TAB PO PRN (09:30)
[2019-11-30] MEDS: CYCLOBENZAPRINE HCL 10 MG TAB PO PRN (10:29)
[2019-11-30 13:00] VITALS: BP 142/96
[2019-11-30 17:00] VITALS: BP 141/82
[2019-11-30 20:00] VITALS: BP 159/93
[2019-11-30] MEDS: ATORVASTATIN 20 MG TAB PO SCH (21:51)
[2019-11-30] MEDS: ZOLPIDEM TARTRATE 5 MG TAB PO PRN (21:52)
[2019-11-30 22:00] VITALS: BP 159/93
[2019-12-01] MEDS: MORPHINE SULF INJ 2 MG/ML SYRINGE 1ML IV PRN ×3 (03:15→11:42)
[2019-12-01 05:00] VITALS: BP 114/79
[2019-12-01 05:10] VITALS: BP 104/60
[2019-12-01] MEDS: FUROSEMIDE 20 MG/2 ML VIAL IV SCH ×2 (06:23→18:00)
[2019-12-01] MEDS: InsuLIN REG 1unit/0.01ml Soln (100units/ml) SC SCH ×3 (06:23→17:00)
[2019-12-01] MEDS: ACCU-CHEK COMFORT CURVE STRIP VI SCH ×3 (06:23→17:00)
[2019-12-01] MEDS: HYDROcodone-ACET 5/325MG TAB PO PRN ×2 (06:24→14:13)
[2019-12-01] MEDS: ALBUTEROL SULF HFA 90MCG INH 200DOSE IN SCH ×2 (06:32→14:37)
[2019-12-01] MEDS: BUDESONIDE (INHALATION) 180 MCG IH IN SCH (06:32)
[2019-12-01] MEDS: ONDANSETRON HCL 4 MG/2 ML VIAL IV PRN (07:49)
[2019-12-01 08:14] LABS: BUN/Creatinine Ratio 23.9; Potassium 3.7 mmol/L (3.5-5.1)
[2019-12-01 09:23] VITALS: BP 125/75
[2019-12-01] MEDS: DexAMETHasone SOD PHOS 10MG/1ML VIAL INJ IV SCH (09:27)
[2019-12-01] MEDS: ASPirin 81 mg TAB PO SCH (09:27)
[2019-12-01] MEDS: ZINC SULFATE 220mg CAP or TAB PO SCH (09:28)
[2019-12-01] MEDS: NIFEdipine ER 30 MG TAB PO SCH (09:28)
[2019-12-01] MEDS: ASCORBIC ACID 500 MG TAB PO SCH (09:28)
[2019-12-01] MEDS: ENOXAPARIN SOD 100 MG/1 ML SYRINGE SC SCH (09:29)
[2019-12-01] MEDS: CHOLECALCIFEROL (VITD3) 2,000 UNIT CAP PO SCH (09:29)
[2019-12-01] MEDS ORDERED: POTASSIUM EFFERVESENT TAB 25 MEQ GT SCH (10:00)
--- NOTE | 2019-12-01 11:32 | NUR ---
Nutrition Followup Note Wt 102.4kg Pt is COVID positive in the COVID wing. Pt has a CCHO 75g diet with a good appetite aeb pt with an avg po intake of 91.7% x 2 days per RN note. Will continue to monitor pt po intake. Est energy needs 4342-4663 kcal (18-20 kcal/kg BW 102.1kg) Est protein needs 61-80g (1-1.3g/kg IBW 61.4kg) Will reassess prn. Labs: GLUC 189H, ALB 4.0 WNL BM: Pt with 1 BM 11/30 per Rn note Skin: BS 23 low risk, full details in women's health care nurse practitioner note PES: Obesity r/t caloric intake in excess of needs aeb pt with a BMI of 35.3kg/m2 Comments: 1) Continue to monitor po intake, labs, skin 2) REfer pt to OPD on DC 3) Continue current plan of care Consider CCHO 60g diet Expected Outcomes/Goals: 1) pt po intake >75% 2) Pt to maintain wt while in hospital 3) f/u 3-5 days
[2019-12-01] MEDS ORDERED: FURO1TAB33 PO (11:52)
[2019-12-01] MEDS ORDERED: DEX4T PO (11:52)
[2019-12-01] MEDS ORDERED: ASCO500T11 PO (11:52)
[2019-12-01 13:01] VITALS: BP 130/87
[2019-12-01 13:18] VITALS: BP 130/87
--- NOTE | 2019-12-01 14:02 | NUR ---
Discharge Discharge instructions given as ordered. Encourage to follow up with PMD as instructed to Discharge Clinic. All questions and concerns addressed. Patient verbalized understanding. Telemetry unit returned to ICU.
--- NOTE | 2019-12-01 14:21 | NUR ---
ALARM INSTALLER PER PATIENT HER RIDE WILL BE AVAILABLE UNTIL AFTER 1800.
--- NOTE | 2019-12-01 16:30 | NUR ---
Assessment Patient is a 39-year-old female who is alert and oriented. Prior to admission patient lived with family and functioned independently. Per patient she can care for her own ADL's and does not have any medical equipment at home. Per patient she will return home to her prior living arrangements post discharge and family will transport her. Per patient she has a follow up appointment with her PCP on 12/08/19. Informed patient she has a right to participate in all discharge planning. Patient verbalized understanding and agreed to discharge plan home.
--- NOTE | 2019-12-01 19:04 | NUR ---
ENDORSED CARE TO JUVE TRUJILLO. ENDORSE DISCHARGE AND REMOVAL OF MIDLINE.
--- NOTE | 2019-12-01 19:59 | NUR ---
Discharge Patient discharge, midline removed, patient wheelchair down, no sign of pain or distress.
== END 2019-12-01 20:05 | disposition home or self-care (01) | DRG 194 ==
LOC: ER 14:13 → TELE 14:14 → TELE-EAST 23:39 → TELE-WESTW 11-25 06:00 → TELE-E-ADS 11-26 12:40
PROVIDERS: ADMIT Hospitalist; ATTEND Internal Medicine Pulmonary Disease
DX: J15.9 Unspecified bacterial pneumonia (principal); E87.2 Acidosis; E66.01 Morbid (severe) obesity due to excess calories; E86.0 Dehydration; E11.65 Type 2 diabetes mellitus with hyperglycemia; R07.89 Other chest pain; E87.6 Hypokalemia; E78.5 Hyperlipidemia, unspecified; E78.1 Pure hyperglyceridemia; R00.0 Tachycardia, unspecified; Z20.828 Contact with and (suspected) exposure to other viral communicable diseases; T38.0X5A Adverse effect of glucocorticoids and synthetic analogues, initial encounter; G47.00 Insomnia, unspecified; Z79.899 Other long term (current) drug therapy; Z82.5 Family history of asthma and other chronic lower respiratory diseases; Z82.61 Family history of arthritis; Z79.84 Long term (current) use of oral hypoglycemic drugs; Z82.49 Family history of ischemic heart disease and other diseases of the circulatory system; Z68.35 Body mass index [BMI] 35.0-35.9, adult; Z88.8 Allergy status to other drugs, medicaments and biological substances; Z83.3 Family history of diabetes mellitus; Z86.19 Personal history of other infectious and parasitic diseases
CPT/HCPCS: 36415; 71045; 76700; 80048; 80053; 80061; 80307; 81001; 82728; 82962; 83036; 83605; 83615; 83735; 84100; 84132; 84443; 84484; 85025; 85379; 85610; 85730; 86141; 87040; 87086; 93005; 94640; 96361; 96374; 96375; G0378; J1100; J1450; J1815; J2405; J3480; J3490

== ENCOUNTER 2020-07-05 16:37 | Emergency (ER) | payer BC ==
[~2020-07-05] VITALS: Ht 170.2 cm; Wt 59.9 kg
[~2020-07-05 16:37] MED LIST changes: +ASCO500T11 PO; +DEX4T PO; +FURO1TAB33 PO; +GABA-339 PO; +LISI2.5T47 PO
[2020-07-05 17:45] LABS: Basophils # (auto) 0.1 10 ^3/uL (0-0.2); Basophils % (auto) 0.7 % (0.0-2.0); Eosinophils # (auto) 0.2 10 ^3/uL (0-0.8); Eosinophils % (auto) 1.8 % (0.0-7.0); Hematocrit 40.5 % (36.0-46.0); Hemoglobin 14.2 g/dL (12.2-16.2); Lymphocytes # (auto) 3.7 10 ^3/uL (0.4-5.4); Lymphocytes % (auto) 29.9 % (10.0-50.0); Mean Corpuscular Hemoglobin 32.7 pg (28.0-32.0); Mean Corpuscular Volume 93.5 fL (80.0-100.0); Monocytes # (auto) 0.5 10 ^3/uL (0-1.3); Monocytes % (auto) 4.3 % (0.0-12.0); Neutrophils # (auto) 7.8 10 ^3/uL (1.6-8.6); Neutrophils % (auto) 63.3 % (37.0-80.0); Nucleated Red Blood Cells % 0.1 %; Platelet Count (auto) 337 10^3/uL (140-450); Red Blood Cells 4.34 10^6/uL (4.0-5.20); Red Cell Distribution Width 12.9 % (11.8-14.3); White Blood Cell 12.3 10^3/uL (4.4-10.8)
[2020-07-05 18:03] LABS: Albumin 3.6 g/dL (3.4-5.0); Anion Gap 14 (5-15); Blood Urea Nitrogen 13 mg/dL (7-18); Calcium 9.1 mg/dL (8.5-10.1); Carbon Dioxide 24 mmol/L (21-32); Chloride 102 mmol/L (98-107); Glucose 130 mg/dL (74-106); Potassium 3.2 mmol/L (3.5-5.1); Sodium 140 mmol/L (136-145)
[2020-07-05 18:05] LABS: Alanine Aminotransferase 37 U/L (13-56); Aspartate Aminotransferase 45 U/L (15-37); BUN/Creatinine Ratio 22.8; GFR African American 151 mL/min; GFR Non-African American 125 mL/min
[2020-07-05 18:08] LABS: Alkaline Phosphatase 93 U/L (45-117); Bilirubin, Total 0.4 mg/dL (0.2-1.0); Total Protein 7.4 g/dL (6.4-8.2)
[2020-07-05 18:25] LABS: INR 0.97 (0.9-1.15); Partial Thromboplastin Time 27.9 sec (23.0-31.2)
[2020-07-05 18:48] VITALS: BP 144/81
== END 2020-07-05 19:09 | disposition home or self-care (01) ==
LOC: ER 16:37
DX: I16.0 Hypertensive urgency (principal); R07.89 Other chest pain; E11.9 Type 2 diabetes mellitus without complications; I10 Essential (primary) hypertension; Z79.899 Other long term (current) drug therapy; Z88.8 Allergy status to other drugs, medicaments and biological substances
CPT/HCPCS: 36415; 71045; 80053; 83880; 84484; 85025; 85610; 85730

== ENCOUNTER 2020-07-20 15:32 | Emergency (ER) | payer BC ==
[~2020-07-20] VITALS: Ht 170.2 cm; Wt 111.1 kg
[2020-07-20 16:09] LABS: Basophils # (auto) 0.1 10 ^3/uL (0-0.2); Basophils % (auto) 0.6 % (0.0-2.0); Eosinophils # (auto) 0.2 10 ^3/uL (0-0.8); Eosinophils % (auto) 1.4 % (0.0-7.0); Hematocrit 37.1 % (36.0-46.0); Hemoglobin 12.7 g/dL (12.2-16.2); Lymphocytes # (auto) 3.9 10 ^3/uL (0.4-5.4); Lymphocytes % (auto) 27.2 % (10.0-50.0); Mean Corpuscular Hemoglobin 32.3 pg (28.0-32.0); Mean Corpuscular Hgb Conc. 34.4 g/dL (32.0-36.0); Monocytes # (auto) 0.7 10 ^3/uL (0-1.3); Monocytes % (auto) 4.5 % (0.0-12.0); Neutrophils # (auto) 9.6 10 ^3/uL (1.6-8.6); Neutrophils % (auto) 66.3 % (37.0-80.0); Nucleated Red Blood Cells % 0.1 %; Platelet Count (auto) 317 10^3/uL (140-450); Red Blood Cells 3.95 10^6/uL (4.0-5.20); Red Cell Distribution Width 12.9 % (11.8-14.3); White Blood Cell 14.4 10^3/uL (4.4-10.8)
[2020-07-20 16:29] LABS: Albumin 3.7 g/dL (3.4-5.0); BUN/Creatinine Ratio 20.8; Calcium 9.4 mg/dL (8.5-10.1); Potassium 3.8 mmol/L (3.5-5.1)
[2020-07-20 16:32] LABS: Bilirubin, Total 0.4 mg/dL (0.2-1.0); Total Protein 7.2 g/dL (6.4-8.2)
[2020-07-20 18:19] LABS: Urine Bacteria MANY /hpf (None Seen); Urine Blood Negative /uL (Negative); Urine Specific Gravity 1.004 (1.001-1.035); Urine WBC 2 /hpf (0 - 5)
[2020-07-20] MEDS ORDERED: OXYCODONE W/ ACETAMINOPHEN 5/325MG TABLET PO ONE (20:15)
[2020-07-20 21:39] VITALS: BP 126/60
== END 2020-07-20 22:55 | disposition home or self-care (01) ==
LOC: ER 15:32
DX: N83.202 Unspecified ovarian cyst, left side (principal); E11.9 Type 2 diabetes mellitus without complications; I10 Essential (primary) hypertension; E78.5 Hyperlipidemia, unspecified; Z79.899 Other long term (current) drug therapy; Z88.8 Allergy status to other drugs, medicaments and biological substances
CPT/HCPCS: 36415; 74176; 76830; 76856; 80053; 81001; 81025; 85025

== ENCOUNTER 2024-09-01 12:21 | Emergency (ER) | payer BC ==
[~2024-09-01] VITALS: Ht 170.2 cm; Wt 105.3 kg
[~2024-09-01 12:21] MED LIST changes: -GLIP5TAB12 PO; +GLIP5TAB21 PO; +PROP1TAB53 PO; -PROP20TA73 PO
[2024-09-01] MEDS: cloNIDine HCL 0.1 MG TAB PO ONE (12:45)
[2024-09-01] MEDS: InsuLIN REG 1unit/0.01ml Soln (100units/ml) IV ONE (12:45)
[2024-09-01] MEDS: SODIUM CHLORIDE 0.9% 1,000 ML IV ONE (12:45)
--- NOTE | 2024-09-01 12:50 | ED.PDOC ---
History of Present Illness HPI Comments 44-year-old female with PMHx DM, HTN, HLD presents with a chief complaint of hyperglycemia and medication refill. Patient mentions that she has been out of her Diabetes and Hypertension medication for the past 3 weeks. Patient mentions that she has been attempting to get in to see her primary care provider, but has an appt in September. Patient is hyperglycemic at this time at 385 blood sugar in triage. Chief Complaint: Hyperglycemia Time Seen by MD: 12:32 Primary Care Provider: DAYO Reviewed Notes: Medications, Allergies Allergies: Coded Allergies: Avocado (Verified Allergy, Intermediate, can't breathe , 11/03/16) No Known Drug Allergy (Verified Allergy, Unknown, 11/24/19) Uncoded Allergies: cantalope (Allergy, Intermediate, can't breathe , 11/03/16) melon (Allergy, Intermediate, can't breathe , 11/03/16) pesticide (Allergy, Intermediate, can't breathe , 11/03/16) watermelon (Allergy, Intermediate, can't breathe , 11/03/16) Home Meds Active Scripts Empagliflozin (Jardiance) 25 Mg Tab, 25 MG PO DAILY for 10 Days, #10 TAB Prov:KATHERINE QUACH MD 09/01/24 Propranolol Hcl (Inderal La) 60 Mg Cap, 1 CAP PO DAILY for 5 Days, #90 CAP 1 Refill Prov:KATHERINE QUACH MD 09/01/24 Lisinopril (Lisinopril) 20 Mg Tab, 1 TAB PO DAILY for 20 Days, #20 TAB 3 Refills Prov:KATHERINE QUACH MD 09/01/24 Metformin Hydrochloride (Metformin Hcl) 500 Mg Tab, 1 TAB PO BID for 10 Days, #20 TAB 3 Refills Prov:KATHERINE QUACH MD 09/01/24 Glipizide (Glipizide) 5 Mg Tab, 1 TAB PO DAILY for 20 Days, #20 TAB 3 Refills Prov:KATHERINE QUACH MD 09/01/24 Dexamethasone (Decadron) 4 Mg Tb, 4 TAB PO DAILY for 7 Days, #7 TAB Prov:YASMINE JACQUES MD 12/01/19 Furosemide (Lasix) 20 Mg Tb, 1 TAB PO DAILY for 7 Days, #7 TAB 1 Refill Prov:YASMINE JACQUES MD 12/01/19 Ascorbic Acid (VITAMIN C TABLET) 500 Mg Tb, 1000 MG PO DAILY for 30 Days, #30 TAB Prov:YASMINE JACQUES MD 12/01/19 Metformin Hydrochloride (Metformin Hcl) 500 Mg Tab, 2 TAB PO BID for 30 Days, #120 TAB 3 Refills Prov:SILVIO LOPEZ MD 11/02/19 Doxycycline Monohydrate (Doxycycline Monohydrate) 100 Mg Tab, 100 MG PO Q12HR for 5 Days, #10 TAB Prov:SILVIO LOPEZ MD 11/02/19 Reported Medications Gabapentin (Gabapentin) 600 Mg Tab, 600 MG PO BID for 30 Days, MG 11/25/19 Lisinopril (Lisinopril) 2.5 Mg Tab, 2.5 MG PO DAILY for 30 Days, MG 11/25/19 Doxepin HCl (Sleep) (Doxepin Hydrochloride) 6 Mg Tab, 6 MG PO HS PRN for FOR INSOMNIA, TAB 10/27/19 Norgestimate-Ethinyl Estradiol (NORGESTIMATE/ETHINYL ESTR) Estradio Tab, 1 TAB PO DAILY, TAB 10/26/19 Glipizide (Glipizide) 5 Mg Tab, 2.5 MG PO BID, MG 10/26/19 Tizanidine Hydrochloride (Zanaflex) 4 Mg Cap, 1 CAP PO TID, #90 CAP 10/26/19 Propranolol HCl (Propranolol Hydrochloride) 20 Mg Tab, 20 MG PO BID, TAB 10/26/19 Hydrocodone-Acetaminophen (Lortab 10-325 mg) 1 Tab Tab, 1 TAB PO QID, TAB 11/03/16 Information Source: Patient Mode of Arrival: Ambulatory Severity: Moderate Timing: Days Duration: Since onset Prehospital treatment: None Past Medical History PAST MEDICAL HISTORY: DM, High Lipids, HTN Surgical History: Denies all surgeries VP REVENUE CYCLE History: No Pertinent VP REVENUE CYCLE History Family History Family History: Family hx of DM, Family hx of HTN Social History Smoker: Non-Smoker Alcohol: Denies ETOH Use Drugs: Denies Drug Use Lives In: Home Constitutional: denies: chills, diaphoresis, fatigue, fever, malaise, sweats, weakness, others EENTM: denies: blurred vision, double vision, ear bleeding, ear discharge, ear drainage, ear pain, ear ringing, eye pain, eye redness, hearing loss, mouth pain, mouth swelling, nasal discharge, nose bleeding, nose congestion, nose pain, photophobia, tearing, throat pain, throat swelling, voice changes, others Respiratory: denies: cough, hemoptysis, orthopnea, SOB at rest, shortness of breath, SOB with excertion, stridor, wheezing, others Cardiovascular: denies: chest pain, dizzy spells, diaphoresis, Dyspnea on exertion, edema, irregular heart beat, left arm pain, lightheadedness, palpitations, PND, syncope, others Gastrointestinal: denies: abdomen distended, abdominal pain, blood streaked bowels, constipated, diarrhea, dysphagia, difficulty swallowing, hematemesis, melena, nausea, poor appetite, poor fluid intake, rectal bleeding, rectal pain, vomiting, others Genitourinary: reports: dysuria; denies: abnormal vagina bleeding, burning, dyspareunia, flank pain, frequency, hematuria, incontinence, pain, , vagina discharge, urgency, others Neurological: denies: dizziness, fainting, headache, left sided numbness, left sided weakness, numbness, paresthesia, pre-existing deficit, right sided numbness, right sided weakness, seizure, speech problems, tingling, tremors, weakness, others Musculoskeletal: denies: back pain, gout, joint pain, joint swelling, muscle pa in, muscle stiffness, neck pain, others Integumetry: denies: bruises, change in color, change in hair/nails, dryness, laceration, lesions, lumps, rash, wounds, others Allergic/Immunocompromised: denies: Difficulty Healing, Frequent Infections, Hives, Itching, others Hematologic/Lymphatic: denies: anemia, blood clots, easy bleeding, easy bruising, swollen glands, others Endocrine: reports: excessive thirst; denies: excessive hunger, excessive sweating, excessive urination, flushing, intolerance to cold, intolerance to heat, unexplained weight gain, unexplained weight loss, others Psychiatric: denies: anxiety, bipolar disorder, depression, hopeless, panic disorder, schizophrenia, sleepless, suicidal, others All Other Systems: Reviewed and Negative Physical Exam General Appearance: Moderate Distress, Normal HEENT: Normal ENT Inspection, Pharynx Normal, TMs Normal Neck: Full Range of Motion, Non-Tender, Normal, Normal Inspection Respiratory: Chest Non-Tender, Lungs Clear, No Accessory Muscle Use, No Respiratory Distress, Normal Breath Sounds Cardiovascular: No Edema, No JVD, No Murmur, No Gallop, Normal Peripheral Pulse s, Regular Rate/Rhythm Breast Exam: Deferred Gastrointestinal: No Organomegaly, Non Tender, No Pulsatile Mass, Normal Bowel Sounds, Soft Genitalia: Deferred Pelvic: Deferred Rectal: Deferred Extremities: No calf tenderness, Normal capillary refill, Normal inspection, Normal range of motion, Non-tender, No pedal edema Musculoskeletal : Apperance: Normal Neurologic: Alert, 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 Was a procedure done?: No Differential Dx Considerations may include: Hyperglycemia Hypertension X-Ray, Labs, Meds, VS Vital Signs Date Time Temp Pulse Resp B/P (MAP) Pulse Ox O2 Delivery O2 Flow Rate FiO2 09/01/24 17:23 Room Air* 0 21 09/01/24 13:21 98.0 76 18 155/111 (126) 99 98.0 09/01/24 12:45 165/100 09/01/24 12:41 97.3 93 17 135/109 (118) 97 97.3 Lab Test 09/01/24 17:28 09/01/24 13:23 09/01/24 12:44 09/01/24 12:28 Range/Units POC Glucose 354 H 385 H 70-106 mg/dl Urine Color Yellow Yellow Urine Clarity Turbid H Clear Urine pH 6.0 5.0-9.0 Urine Specific [place] 1.046 H 1.001-1.035 Urine Protein 1+ H Negative Urine Ketones 1+ H Negative Urine Blood Negative Negative /uL Urine Nitrite Negative Negative Urine Bilirubin 1+ H Negative Urine Urobilinogen 2 H Negative mg/dL Urine Leukocyte Esterase Trace Negative /uL Urine RBC 5 0 - 4 /hpf Urine Microscopic WBC 9 H 0-5 /HPF Urine Squamous Epithelial Cells Few <5 /hpf Urine Calcium Oxalate Crystals Few None Seen Urine Bacteria Mod H None Seen /hpf Urine Mucus Few None Seen Urine Glucose 4+ H Normal mg/dL White Blood Count 12.6 H 4.4-10.8 10^3/uL Red Blood Count 4.98 4.0-5.20 10^6/uL Hemoglobin 14.7 12.2-16.2 g/dL Hematocrit 43.6 36.0-46.0 % Mean Corpuscular Volume 87.6 80.0-100.0 fL Mean Corpuscular Hemoglobin 29.6 28.0-32.0 pg Mean Corpuscular Hemoglobin Concent 33.8 32.0-36.0 g/dL Red Cell Distribution Width 15.9 H 11.8-14.3 % Platelet Count 321 140-450 10^3/uL Mean Platelet Volume 8.5 6.9-10.8 fL Neutrophils (%) (Auto) 66.0 37.0-80.0 % Lymphocytes (%) (Auto) 27.2 10.0-50.0 % Monocytes (%) (Auto) 4.6 0.0-12.0 % Eosinophils (%) (Auto) 1.3 0.0-7.0 % Basophils (%) (Auto) 0.9 0.0-2.0 % Neutrophils # (Auto) 8.3 1.6-8.6 10 ^3/uL Lymphocytes # (Auto) 3.4 0.4-5.4 10 ^3/uL Monocytes # (Auto) 0.6 0-1.3 10 ^3/uL Eosinophils # (Auto) 0.2 0-0.8 10 ^3/uL Basophils # (Auto) 0.1 0-0.2 10 ^3/uL Nucleated Red Blood Cells 0.1 % Sodium Level 133 L 136-145 mmol/L Potassium Level 3.6 3.5-5.1 mmol/L Chloride Level 100 98-107 mmol/L Carbon Dioxide Level 24 20-31 mmol/L Anion Gap 9 5-15 Blood Urea Nitrogen 12 9-23 mg/dL Creatinine 0.88 0.550-1.02 mg/dL Glomerular Filtration Rate Calc 83 >90 mL/min BUN/Creatinine Ratio 13.6 10.0-20.0 Serum Glucose 383 H 74-106 mg/dL Calcium Level 10.0 8.7-10.4 mg/dL Current Medications Medications (Trade) Dose Ordered Sig/Kira Route Start Time Stop Time Status Last Admin Clonidine HCl (Catapres Tablet) 0.1 mg ONCE ONCE PO 09/01/24 12:45 09/01/24 12:46 DC 09/01/24 12:45 Patient alert. Came in because she ran out of medication. Blood pressure slightly elevated. Was given clonidine. Blood sugar elevated. Establish intravenous access. Was given insulin. Urinalysis shows UTI. She does have bilirubin in her urine. Ketones in urine. WBC slightly elevated. Neutrophils within normal limits. Explained to the patient about the lab values. Was given prescription of glipizide metformin lisinopril propranolol Macrobid antibiotic Was told to follow up with her primary care physician. Was told to come back if there is any problem. Time of 1ST Reevaluation: 12:32 (EXPLAINED TO THE PATIENT THAT THEY MAY BE STAYING WITH US IN THE HOSPITAL, BUT IF STABLE FOR DISCHARGE, THEY WILL BE NOTIFIED AND SENT HOME.) Reevaluation 1ST: Unchanged Time of 2ND Reevaluation: 13:02 Reevaluation 2ND: Unchanged Patient Education/Counseling: Diagnosis, Treatment Family Education/Counseling: No Family Present Departure 1 Departure Time of Disposition: 13:59 Impression: Primary Impression: Uncontrolled diabetes mellitus Qualified Codes: E13.65 - Other specified diabetes mellitus with hyperglycemia Additional Impressions: HTN (hypertension) Qualified Codes: I10 - Essential (primary) hypertension UTI (urinary tract infection) Qualified Codes: N30.00 - Acute cystitis without hematuria Disposition: 01 HOME / SELF CARE / HOMELESS Condition: Good e-Prescriptions Nitrofurantoin Monohydrate Mac (Macrobid) 100 Mg Cap 100 MG PO BID for 7 Days, #14 CAP Prov: KATHERINE QUACH MD 09/01/24 Empagliflozin (Jardiance) 25 Mg Tab 25 MG PO DAILY for 10 Days, #10 TAB Prov: KATHERINE QUACH MD 09/01/24 Propranolol Hcl (Inderal La) 60 Mg Cap 1 CAP PO DAILY for 5 Days, #90 CAP 1 Refill Prov: KATHERINE QUACH MD 09/01/24 Lisinopril (Lisinopril) 20 Mg Tab 1 TAB PO DAILY for 20 Days, #20 TAB 3 Refills Prov: KATHERINE QUACH MD 09/01/24 Metformin Hydrochloride (Metformin Hcl) 500 Mg Tab 1 TAB PO BID for 10 Days, #20 TAB 3 Refills Prov: KATHERINE QUACH MD 09/01/24 Glipizide (Glipizide) 5 Mg Tab 1 TAB PO DAILY for 20 Days, #20 TAB 3 Refills Prov: KATHERINE QUACH MD 09/01/24 Discharged With: Self Critical Care Note Critical Care Time?: No Stability Stability form required: No Heart Score Heart Score: Heart Score Response (Comments) Value History N/A 0 EKG N/A 0 Age N/A 0 Risk Factors N/A 0 Troponin N/A 0 Total 0 I personally scribed for KATHERINE QUACH MD ([email or web address]) on 09/01/24 at 12:49. Electronically submitted by Cooper Nascimento ([email or web address]). KATHERINE QUACH MD September 01, 2024 12:49
[2024-09-01 12:51] LABS: Basophils # (auto) 0.1 10 ^3/uL (0-0.2); Basophils % (auto) 0.9 % (0.0-2.0); Eosinophils # (auto) 0.2 10 ^3/uL (0-0.8); Eosinophils % (auto) 1.3 % (0.0-7.0); Hematocrit 43.6 % (36.0-46.0); Hemoglobin 14.7 g/dL (12.2-16.2); Lymphocytes # (auto) 3.4 10 ^3/uL (0.4-5.4); Lymphocytes % (auto) 27.2 % (10.0-50.0); Mean Corpuscular Hemoglobin 29.6 pg (28.0-32.0); Mean Corpuscular Hgb Conc. 33.8 g/dL (32.0-36.0); Mean Corpuscular Volume 87.6 fL (80.0-100.0); Monocytes # (auto) 0.6 10 ^3/uL (0-1.3); Monocytes % (auto) 4.6 % (0.0-12.0); Neutrophils # (auto) 8.3 10 ^3/uL (1.6-8.6); Nucleated Red Blood Cells % 0.1 %; Platelet Count (auto) 321 10^3/uL (140-450); Red Blood Cells 4.98 10^6/uL (4.0-5.20); Red Cell Distribution Width 15.9 % (11.8-14.3); White Blood Cell 12.6 10^3/uL (4.4-10.8)
[2024-09-01 13:01] LABS: Chloride 100 mmol/L (98-107); Potassium 3.6 mmol/L (3.5-5.1)
[2024-09-01 13:02] LABS: Anion Gap 9 (5-15); Carbon Dioxide 24 mmol/L (20-31)
[2024-09-01 13:07] LABS: BUN/Creatinine Ratio 13.6 (10.0-20.0); Blood Urea Nitrogen 12 mg/dL (9-23)
[2024-09-01 13:09] LABS: Glucose 383 mg/dL (74-106); Sodium 133 mmol/L (136-145)
[2024-09-01 13:21] VITALS: BP 155/111; PULSE 76; RESP 18; TEMP 98; O2SAT 99
[2024-09-01 13:35] LABS: Urine Bacteria MOD /hpf (None Seen); Urine Blood Negative /uL (Negative); Urine Clarity Turbid (Clear); Urine Color Yellow (Yellow); Urine Mucus FEW (None Seen); Urine Protein, UAD 1+ (Negative); Urine Specific Gravity 1.046 (1.001-1.035); Urine Squamous Epithelial Cell FEW /hpf (<5); Urine Urobilinogen 2 mg/dL (Negative); Urine WBC 9 /HPF (0-5)
[2024-09-01] MEDS ORDERED: PROP60CA34 PO (17:15)
[2024-09-01] MEDS ORDERED: METF-370 PO (17:15)
[2024-09-01] MEDS ORDERED: GLIP5TAB21 PO (17:15)
[2024-09-01] MEDS ORDERED: LISI20TA56 PO (17:15)
[2024-09-01] MEDS ORDERED: EMPA1TAB3 PO (17:15)
[2024-09-01] MEDS ORDERED: NITR-87 PO (17:43)
[2024-09-01] MEDS ORDERED: ATROPINE SULF 1 MG/10ml SYR ONE (17:59)
== END 2024-09-01 17:29 | disposition home or self-care (01) ==
LOC: ER 12:27
DX: E11.65 Type 2 diabetes mellitus with hyperglycemia (principal); I10 Essential (primary) hypertension; N39.0 Urinary tract infection, site not specified; E78.5 Hyperlipidemia, unspecified; Z76.0 Encounter for issue of repeat prescription; Z79.52 Long term (current) use of systemic steroids; Z79.84 Long term (current) use of oral hypoglycemic drugs; Z79.899 Other long term (current) drug therapy; Z91.018 Allergy to other foods
CPT/HCPCS: 36415; 80048; 81001; 82947; 82962; 85025

== ENCOUNTER → 2024-11-17 | Outpatient (CLI) | payer BC ==
[~2024-11-17] MED LIST changes: +EMPA1TAB3 PO; +LISI20TA56 PO; +NITR-87 PO; +PROP60CA34 PO
[2024-11-17 15:28] LABS: Hematocrit 37.4 % (36.0-46.0); Hemoglobin 12.9 g/dL (12.2-16.2); Mean Corpuscular Hemoglobin 30.8 pg (28.0-32.0); Mean Corpuscular Volume 89.2 fL (80.0-100.0); Nucleated Red Blood Cells % 0.1 %
[2024-11-17 16:41] LABS: Follicle Stimulating Hormone 2.99 IU/L (SEE BELOW)
== END | disposition home or self-care (01) ==
LOC: LAB 15:07
PROVIDERS: ATTEND Obstetrics & Gynecology
DX: N95.1 Menopausal and female climacteric states (principal)
CPT/HCPCS: 36415; 82670; 83001; 83002; 84403; 84443; 85025